=== PATIENT | female | born 1965 | race Caucasian/White ===

== ENCOUNTER 2017-02-06 09:41 | Outpatient (CLI) | payer BC ==
--- NOTE | 2017-02-06 10:56 | ULT ---
GALLBLADDER ULTRASOUND: Clinical history: Pain. FINDINGS: There is no evidence of cholelithiasis or gallbladder wall thickening. The imaged liver reveals no fo eric hepatic lesion. No ascites is seen. The common duct is normal at 4 mm in diameter where visualize d. IMPRESSION: No acute abnormality in the right upper quadrant. POS: [facility]
== END 2017-02-06 09:42 | disposition home or self-care (01) ==
LOC: ULT 09:41
PROVIDERS: ATTEND Internal Medicine Gastroenterology
DX: Z12.11 Encounter for screening for malignant neoplasm of colon (principal); K57.32 Diverticulitis of large intestine without perforation or abscess without bleeding; K91.1 Postgastric surgery syndromes; E88.81 Metabolic syndrome and other insulin resistance; R19.7 Diarrhea, unspecified; Z90.3 Acquired absence of stomach [part of]
CPT/HCPCS: 76705

== ENCOUNTER 2017-10-01 11:01 | Observation (INO) | payer BC ==
[2017-10-01] MEDS ORDERED: Diltiazem 125 MG in Sodium Chloride 0.9% 100 ML IVPB SCH (11:30)
[2017-10-01 12:43] LABS: #Basophils 0.1 thou/uL (0.0-0.2); #Eosinphils 0.2 thou/uL (0.0-0.7); #Lymphocytes 3.1 thou/uL (1.20-3.40); #Monocytes 0.6 thou/uL (0.11-0.59); #Neutrophils 5.7 thou/uL (1.40-6.50); %Basophils 0.8 % (0.0-1.0); %Eosinophils 1.8 % (0.0-10.0); %Lymphocytes 32.1 % (21.0-51.0); %Monocytes 6.2 % (0.0-10.0); %Neutrophils 59.1 % (42.0-75.0); Hemoglobin 13.3 g/dL (12.0-16.0); Mean Corpuscular Hemoglobin 28.4 pg (27.0-31.0); Mean Corpuscular Volume 86.2 fL (78.0-98.0); Mean Platelet Volume 8.1 fL (7.4-10.4); Platelet Count 279 thou/uL (130-400); RBC Distribution Width 12.6 % (11.5-14.5); Red Blood Cell (RBC) Count 4.69 mill/uL (4.20-5.40); White Blood Cell (WBC) Count 9.7 thou/uL (4.8-10.8)
[2017-10-01] MEDS ORDERED: Enoxaparin Sodium 100 MG/ML SYRINGE ONE (12:51)
[2017-10-01 12:58] LABS: ALT (SGPT) 16 U/L (8-55); AST (SGOT) 17 U/L (5-34); Albumin 4.4 g/dL (3.5-5.0); Alkaline Phosphatase 102 U/L (40-150); Anion Gap 14 mmol/L (10-20); BUN (Urea Nitrogen) 23 mg/dL (9.8-20.1); Bilirubin, Total 0.3 mg/dL (0.2-1.2); CK (CPK) 127 U/L (29-168); Calc. Creatinine Clearance 0 mL/min (70-130); Calcium 10.3 mg/dL (7.8-10.44); Carbon Dioxide 25 mmol/L (22-29); Chloride 104 mmol/L (98-107); Estimated GFR-MDRD 76; Globulin 2.9 g/dL (2.4-3.5); Glucose 98 mg/dL (70-105); Potassium 4.1 mmol/L (3.5-5.1); Protein, Total 7.3 g/dL (6.0-8.3); Sodium 139 mmol/L (136-145)
[2017-10-01 13:03] LABS: CKMB 1.7 ng/mL (0-6.6); Troponin I Less than 0.010 ng/mL (< 0.028)
[2017-10-01 14:47] VITALS: BMI 43.2
--- NOTE | 2017-10-01 15:59 | HP ---
DATE OF ADMISSION: 10/01/2017 ADMITTING PHYSICIAN: Sawyer Barrera M.D. HISTORY OF PRESENT ILLNESS: A 52-year-old female with previous history of atrial fibrillation who pr esented to the emergency room complaining of same. She has symptoms of slight shortness of breath, d ifficulty breathing. No chest pain is otherwise noted. She was seen and evaluated in the emergency room, found to be in atrial fibrillation with rapid ventricular response. This was confirmed by EKG. There were no EKG changes. She was placed on Cardizem drip. Heart rate has slowed, but she remain ed in atrial fibrillation. As noted, she has had a history of atrial fibrillation in the past. She is not maintained on medication at this time. Specifically, she has not been taking her medicines as prescribed. As noted, she noted no chest pain, did note some slight difficulty breathing, slight nausea, but no v omiting. At this time upon our interview, she is currently resting well, still on Cardizem drip. Ot herwise, no other medical complaints are noted. She has previously been on novel anticoagulants in t he past. She has stopped taking those at this time. Otherwise, no other medical complaints. ALLERGIES: She is allergic to PENICILLIN, SHELLFISH and SULFA. CURRENT MEDICATIONS: Thyroid and aspirin. She is also on losartan 50 mg p.o. daily as well as dilti azem 240 mg daily. PAST MEDICAL HISTORY: Positive for hypothyroidism, hypertension. PAST SURGICAL HISTORY: Positive for tonsillectomy, shoulder surgeries, . SOCIAL/PERSONAL HISTORY: She does not smoke, drinks alcohol. She works as a nurse. REVIEW OF SYSTEMS: Otherwise, unremarkable. PHYSICAL EXAMINATION: VITAL SIGNS: Her temperature is 98.6, pulse 80 and irregular, BP 110/74. GENERAL: She is alert, active, in no acute distress. HEENT: Normocephalic, atraumatic. Extraocular muscles intact. Sclerae and conjunctivae are clear. Throat clear. NECK: Supple, full range of motion, no masses. LUNGS: Clear. HEART: Reveals an irregularly irregular rhythm without murmur, gallops or rubs. ABDOMEN: Soft, nontender. Bowel sounds present and active. EXTREMITIES: No clubbing, edema or cyanosis. NEUROLOGIC: She is alert and oriented x3. Cranial nerves II-XII are grossly intact. LABORATORY DATA: Her hemoglobin is 13.3, hematocrit 40.5, white count 9.7. Sodium 139, potassium 4. 1, chloride 104, CO2 25, BUN 23, creatinine 0.79. Initial troponin 0.01. EKG reveals no acute lynn es. AFib, initially with rapid ventricular response, now was rate controlled AFib. IMPRESSION: Atrial fibrillation. PLAN: The patient will be placed in observation overnight. Cardiology consult will be obtained. I have gone and placed her on Eliquis. I have briefly discussed with her the possible need for further intervention such as ablation which she has had this in the past is not having recurrence of such. The patient verbalized understanding. We will wait for Cardiology input.
[2017-10-01] MEDS: Apixaban 5 MG TAB PO SCH (20:38)
--- NOTE | 2017-10-02 08:58 | CON ---
DATE OF CONSULTATION: 10/02/2017 REASON FOR CONSULTATION: Atrial fibrillation. REFERRING PROVIDER: Dr. Sawyer Barrera. HISTORY OF PRESENT ILLNESS: Mr. Carey is a very pleasant 52-year-old woman who has a previous histo ry of paroxysmal atrial fibrillation. I last saw Ms. Novak in 08/2016. At that time, she is on Car dizem and I placed her on anticoagulation therapy. I have not seen Ms. Novak for over 1 year. She has subsequently stopped her anticoagulation therapy and calcium channel blockade. She states recently she had an episode of palpitations yesterday. She thinks she went into atrial fi brillation yesterday, but is unsure. She presented to the emergency room with atrial fibrillation wi th RVR. She is on IV Cardizem and is rate controlled. PAST MEDICAL HISTORY: Hyperlipidemia, hypertension, obesity, hypothyroidism C, x3. ALLERGIES: PENICILLIN. HOME MEDICATIONS: Include Protonix, losartan, aspirin, and [place] Thyroid. SOCIAL HISTORY: No current tobacco or alcohol use. REVIEW OF SYSTEMS: Ten-point review of systems is reviewed and as above, otherwise negative. PHYSICAL EXAMINATION: GENERAL: Patient is a pleasant female who is in no acute distress. The patient appears her stated a ge. VITAL SIGNS: Blood pressure 110/70, pulse 80s, respirations 20. NEUROLOGIC: The patient is alert and oriented times 3 with no focal neurologic deficits. HEENT: Sclerae without icterus. Mouth has moist mucous membranes with normal pallor. NECK: No JVD. Carotid upstroke brisk. No bruits bilaterally. LUNGS: Clear to auscultation with unlabored respirations. BACK: No scoliosis or kyphosis. CARDIAC: Irregularly irregular. No S3 or S4 noted. No significant rubs, murmurs, thrills, or gallops noted throughout the precordium. PMI is not displaced. There is no parasternal heave. ABDOMEN: Soft, nontender, nondistended. No peritoneal signs present. No hepatosplenomegaly. No abnormal striae. EXTREMITIES: 2+ femoral and 2+ dorsalis pedis pulses. No cyanosis, clubbing, or edema. SKIN: No gross abnormalities. PERTINENT LABORATORY DATA: Hemoglobin 13.3, sodium 139, BUN 29, creatinine 0.79. IMPRESSION: Paroxysmal atrial fibrillation. RECOMMENDATIONS: 1. Add p.o. Cardizem at 240 q.a.m. That was her previous diltiazem dose, which I subsequently have been discontinued. 2. Add Eliquis at 5 mg p.o. b.i.d. 3. Discontinue Cardizem at noon. Patient's CHADS-VASc score is estimated at 2. She does appear to have paroxysmal atrial fibrillation . Given that she has not been on anticoagulation therapy, do not feel comfortable proceeding with he r cardioversion. At this point, the plan is rate control. When she is rate controlled, then from my standpoint, it would be okay for discharge with close outpatient followup.
[2017-10-02] MEDS ORDERED: Losartan 25 MG TAB PO SCH (09:00)
[2017-10-02] MEDS ORDERED: Thyroid 60 MG TAB PO SCH (09:00)
[2017-10-02] MEDS: Apixaban 5 MG TAB PO SCH (09:33)
[2017-10-02 11:26] VITALS: BP 105/58; TEMP 97.8
--- NOTE | 2017-10-02 13:27 | PRG ---
DATE OF SERVICE: 10/02/2017 SUBJECTIVE: Ms. Novak is doing well. She has converted back to sinus rhythm now. She is toleratin g all oral intake. She is feeling better. No other medical complaints. OBJECTIVE: VITAL SIGNS: Pulse 64 and regular, BP 105/58. IMPRESSION: Atrial fibrillation. PLAN: She will be discharged home today. DISCHARGE NOTE: She will be discharged home today on her home medications which will be losartan 50 mg daily, pantoprazole 40 mg daily, [place] Thyroid 120 mg daily. She will be continued on Eliquis 5 mg daily and 5 Cardizem-CD 240 mg daily. She will be seen in followup with Dr. Monroe in approxim ately 1 week.
== END 2017-10-02 14:43 | disposition home or self-care (01) ==
LOC: ERS 11:01 → 2SW 14:39
PROVIDERS: ADMIT Family Medicine; ATTEND Family Medicine
DX: I48.0 Paroxysmal atrial fibrillation (principal); E03.9 Hypothyroidism, unspecified; I10 Essential (primary) hypertension; E78.5 Hyperlipidemia, unspecified; E66.9 Obesity, unspecified; Z68.41 Body mass index [BMI] 40.0-44.9, adult; Z79.82 Long term (current) use of aspirin; Z79.899 Other long term (current) drug therapy; Z88.0 Allergy status to penicillin; Z88.2 Allergy status to sulfonamides; Z88.8 Allergy status to other drugs, medicaments and biological substances; Z91.013 Allergy to seafood
CPT/HCPCS: 80053; 82553; 84484; 85025; 93005; 96365; 96366; 96372; 96376; G0378; J1650; J3490; J7050

== ENCOUNTER → 2017-11-19 | Day surgery (SDC) | payer BC ==
[2017-11-16 11:16] LABS: Follow-up Chemistry Comp? YES
--- NOTE | 2017-11-19 11:47 | CT ---
CT ANGIO CHEST PERFORMED WITH AND WITHOUT CONTRAST ENHANCEMENT: Date: 11/19/17 HISTORY: Coronary mapping. Patient has atrial fibrillation and is to have an ablation on 11/23/17. FINDINGS: This examination was technically inadequate due to difficulty with venous access. The visualized lung rose are clear of any infiltrative process. No pulmonary nodules are identified . No pleural effusions. No significant mediastinal or hilar adenopathy is appreciated on this examina tion. IMPRESSION: 1. Poor IV access, which limited the angiographic portion of the study; nondiagnostic, the patient d id not want to proceed with another attempt. 2. No signs of pulmonary nodules or infiltrates. Small hiatal hernia is incidentally noted. 3. Suggestion of some possible fatty changes of the liver. POS: [facility]
== END ==
LOC: CT 11-16 09:42
PROVIDERS: ATTEND Internal Medicine Cardiovascular Disease
DX: Z01.818 Encounter for other preprocedural examination (principal); I48.91 Unspecified atrial fibrillation; R06.02 Shortness of breath
CPT/HCPCS: 36415; 71275; 82565; 84520

== ENCOUNTER 2017-11-23 05:56 | Inpatient (IN) | payer BC ==
[2017-11-23] MEDS ORDERED: Heparin 10,000 UNITS/1 ML VIAL ONE ×3 (06:35→08:14)
[2017-11-23 06:47] LABS: #Basophils 0.1 thou/uL (0.0-0.2); #Eosinphils 0.2 thou/uL (0.0-0.7); #Lymphocytes 2.5 thou/uL (1.20-3.40); #Monocytes 0.5 thou/uL (0.11-0.59); #Neutrophils 4.6 thou/uL (1.40-6.50); %Basophils 0.9 % (0.0-1.0); %Eosinophils 2.6 % (0.0-10.0); %Lymphocytes 32.4 % (21.0-51.0); %Monocytes 5.8 % (0.0-10.0); %Neutrophils 58.3 % (42.0-75.0); Hemoglobin 12.2 g/dL (12.0-16.0); Mean Corpuscular HGB CONC 31.8 g/dL (32.0-36.0); Mean Corpuscular Hemoglobin 27.3 pg (27.0-31.0); Mean Corpuscular Volume 85.8 fL (78.0-98.0); Mean Platelet Volume 7.6 fL (7.4-10.4); Platelet Count 258 thou/uL (130-400); RBC Distribution Width 12.6 % (11.5-14.5); Red Blood Cell (RBC) Count 4.47 mill/uL (4.20-5.40); White Blood Cell (WBC) Count 7.9 thou/uL (4.8-10.8)
[2017-11-23 06:54] LABS: Prothrombin Time 13.7 SEC (12.0-14.7)
[2017-11-23 06:59] LABS: Anion Gap 13 mmol/L (10-20); BUN (Urea Nitrogen) 19 mg/dL (9.8-20.1); Calc. Creatinine Clearance 137 mL/min (70-130); Calcium 8.9 mg/dL (7.8-10.44); Carbon Dioxide 25 mmol/L (22-29); Chloride 106 mmol/L (98-107); Estimated GFR-MDRD 76; Glucose 101 mg/dL (70-105); PTT 27.1 SEC (22.9-36.1); Potassium 4.2 mmol/L (3.5-5.1); Sodium 140 mmol/L (136-145)
[2017-11-23] MEDS ORDERED: Phenylephrine HCL 10 MG/ML VIAL ONE ×2 (07:05→11:11)
[2017-11-23] MEDS ORDERED: Promethazine HCl 25 MG/ML VIAL ONE (07:31)
[2017-11-23] MEDS ORDERED: Lidocaine 2% Jelly 5 ML TUBE ONE (07:31)
[2017-11-23] MEDS ORDERED: Protamine Sulfate 50 MG/5 ML VIAL ONE ×2 (07:31→09:48)
[2017-11-23] MEDS ORDERED: Fentanyl 100 MCG/2 ML VIAL ONE ×2 (07:31→13:53)
[2017-11-23] MEDS ORDERED: Furosemide 40 MG/4 ML VIAL ONE (07:31)
[2017-11-23] MEDS ORDERED: Heparin 25,000 units/D5W 500 ML ONE (07:32)
[2017-11-23] MEDS ORDERED: Isoproterenol 0.2 MG/1 ML AMP ONE (09:47)
[2017-11-23] MEDS ORDERED: PHENYLEPHRINE-NS 100 MCG/ML 10 ML SYRINGE ONE ×2 (11:12→12:34)
[2017-11-23] MEDS ORDERED: Ondansetron HCl/PF 4 MG/2 ML Vial ONE (12:34)
[2017-11-23] MEDS ORDERED: Protamine Sulfate 250 MG/25 ML VIAL ONE (12:34)
[2017-11-23] MEDS ORDERED: Dexamethasone 20 MG/5 ML VIAL ONE (12:34)
[2017-11-23] MEDS ORDERED: PROPOFOL 200 MG/20 ML VIAL ONE (12:34)
[2017-11-23] MEDS ORDERED: Heparin 30,000 units/30 ml VIAL ONE (12:34)
--- NOTE | 2017-11-23 14:52 | OP ---
DATE OF PROCEDURE: 11/23/2017 PROCEDURE: Pulmonary venous isolation REFERRING PHYSICIAN: Dr. Nicholas Monroe REASON FOR PROCEDURE: Ms. Novka is a 52-year-old woman with history of elevated BMI and frequent atrial fibrillation paroxysms. She has no obstruction , normal heart. She is here for pulmonary venous isolation procedure. PROCEDURE: The patient received propofol and general anesthesia by Anesthesia specialist. After adequate level of sedation achieved, the left and right femoral veins were prepped and draped and anesthetized using subcutaneous lidocaine and under ultrasound guidance, both left and right veins were cannulated x2. On the left side an 11 Slovak sheath was used to advance an ice catheter which was used to monitor the transseptal puncture as well as monitoring pericardial effusion throughout the procedure. Also from the left side there was a sheath inserted which was used to place a duodeca catheter in the CS to access the right atrium location. From the right initially an 8 Slovak short sheaths were introduced which was used to advance a ThermoCool SF ST ablation catheter to the right atrium and 3D map of the right atrium was obtained. Following that, the 8 [place] sheaths were exchanged to a 2 SL1 sheaths were used to perform transseptal puncture under fluoroscopic and ice catheter guidance with a transseptal puncture was performed and 2 SL1 sheaths were introduced. Heparin was introduced at this point and boluses and heparin drip was adjusted throughout the case to over 350 ACT levels. Through the transseptal sheath, the ThermoCool SF ST and the 24 Lasso catheter was introduced to the left atrium and left atrial 3D map was obtained. The ThermoCool catheter was used to perform pulmonary venous isolation procedure. During the catheter manipulation atrial fibrillation spontaneously induced and persisted even after pulmonary venous isolation was completed. A posterior wall isolation was also completed with a superior and inferior line. Through the ablation procedure, the esophogeal probe was monitored for temperature rises and following that an infra-wall ablation was also performed. The patient remained in atrial fibrillation despite. At this point cardioversion was performed, 200 joules and subsequently the patient maintained sinus rhythm. Isuprel was administered and the reconnected veins were re-isolated. Ventricular pacing demonstrated no evidence of accessory pathway with VA Wenckebach cycle length was at 40 milliseconds. AV Wenckebach segment on the isuprel was 330 milliseconds. The AV node ERP on the right upper was 400/180 with no evidence of dual AV node physiology is seen. HV measurements was 46 milliseconds. Following this, the sheaths were pulled back to the right side, catheters were removed. The lack of pericardial effusion was ascertained by fluro and ICE catheter and none was found. Heparin was discontinued and protamine was administered to reverse heparin effect. The sheaths were pulled in the dental laboratory technician apprentice. The patient tolerated the procedure, no complication noted. CONCLUSION: Succesful Pulmonary vein and posterior wall isolation procedure. PLAN: Routine postoperative care. Resume anticoagulation. MTDD
[2017-11-23] MEDS ORDERED: Acetaminophen/Codeine 30-300mg Tablet PO PRN (15:45)
[2017-11-23] MEDS: Sucralfate 1 GM TAB PO SCH (18:51)
[2017-11-23] MEDS: metFORMIN 500 MG TAB PO SCH (18:51)
[2017-11-23] MEDS: Acetaminophen/Codeine 30-300mg Tablet PO PRN (19:41)
[2017-11-23] MEDS: Apixaban 5 MG TAB PO SCH (19:42)
[2017-11-23] MEDS ORDERED: Diabetic Tussin 200 MG/10 ML UDCUP PO PRN (20:59)
[2017-11-24] MEDS: Sucralfate 1 GM TAB PO SCH ×4 (00:14→16:26)
[2017-11-24] MEDS: Acetaminophen/Codeine 30-300mg Tablet PO PRN ×3 (01:35→10:52)
[2017-11-24] MEDS: Ketorolac Tromethamine 30 MG/ML VIAL IVP PRN ×2 (10:01→21:17)
[2017-11-24] MEDS: metFORMIN 500 MG TAB PO SCH ×2 (10:50→16:25)
[2017-11-24] MEDS: Apixaban 5 MG TAB PO SCH ×2 (10:51→21:16)
[2017-11-24] MEDS: Calcium Carbonate 500 MG TAB PO SCH ×2 (10:51→11:03)
[2017-11-24] MEDS: Multivit, Therapeutic 1 TAB PO SCH ×2 (10:51→11:03)
[2017-11-24] MEDS ORDERED: ISOVUE-370 76%-LOCM 1 ML ONE (10:52)
[2017-11-24] MEDS: Thyroid 60 MG TAB PO SCH (12:25)
[2017-11-24] MEDS ORDERED: Furosemide 20 MG/2 ML VIAL SLOW IVP SCH (13:30)
[2017-11-24] MEDS ORDERED: Atropine Sulfate 1 mg/10 ml Syringe ONE (15:08)
[2017-11-24 15:15] LABS: #Eosinphils 0.2 thou/uL (0.0-0.7); #Lymphocytes 2.1 thou/uL (1.20-3.40); #Neutrophils 6.4 thou/uL (1.40-6.50); %Basophils 0.3 % (0.0-1.0); %Eosinophils 1.8 % (0.0-10.0); %Lymphocytes 21.5 % (21.0-51.0); %Monocytes 9.9 % (0.0-10.0); %Neutrophils 66.4 % (42.0-75.0); Mean Corpuscular HGB CONC 32.1 g/dL (32.0-36.0); Mean Corpuscular Hemoglobin 27.7 pg (27.0-31.0); Mean Corpuscular Volume 86.3 fL (78.0-98.0); Mean Platelet Volume 8.1 fL (7.4-10.4); Platelet Count 147 thou/uL (130-400); RBC Distribution Width 12.8 % (11.5-14.5); Red Blood Cell (RBC) Count 3.98 mill/uL (4.20-5.40); White Blood Cell (WBC) Count 9.6 thou/uL (4.8-10.8)
[2017-11-24] MEDS ORDERED: Norepinephrine 8 MG/0.9% NS 250 ML ONE (15:16)
[2017-11-24] MEDS ORDERED: DOPamine 400 MG/D5W 250 ML 250 ML ONE (15:51)
[2017-11-24] MEDS ORDERED: diphenhydrAMINE 50 MG/ML VIAL IVP SCH (16:00)
[2017-11-24] MEDS ORDERED: DOPamine 400 MG/D5W 250 ML 250 ML IVPB SCH (16:00)
[2017-11-24] MEDS: Ondansetron HCl/PF 4 MG/2 ML Vial SLOW IVP SCH ×2 (16:11→16:40)
--- NOTE | 2017-11-24 16:19 | PDOC.PULCN ---
<Stephon Perez - Last Filed: 11/24/17 16:40> Pulmonology Consult: HPI - Date of Consult Date: 11/24/17 Time: 16:15 - Consult Details Reason for Consult: ICU admission & Hypotension Requesting Physician: Dr. Cottrell - History of Present Illness HPI: GREGORY WYLIE is a 52 year-old Female that presents s/p successful ablation for paroxysmal A-fib. Patient had CODE ERIKA called during a transthoracic echocardiogram. Patient was found to be hypotensive, diaphoretic, pale, and complaining of pain. Patient describes the pain in her chest as "tearing and through to her back." Patient's daughter who is a nurse stated that her BP got down to as low as 60s systolic. Patient then has maintained to 90s systolic after her first liter of fluid. Patient also states the pain is worse with lying down. Patient also complains of SOB. Patient had successful ablation completed yesterday without complication. Patient states that she feels weak and lightheaded. Patient denies any fevers, chills, recent illness, or cough. No other complaints at this time. Pulmonology Consult: ROS - Review of Systems Constitutional: negative: fever, chills Cardiovascular: chest pain, light headedness. negative: palpitations Respiratory: short of breath. negative: congestion, cough Pulmonology Consult: PMH Source: patient, family Past Medical History: PMH: HTN, HLD, A-fib, Pre-DM PSH: Gastric sleeve, x3 - Family History Family history: reviewed and not pertinent - Social History Smoking Status: Never smoker Alcohol Use: none Drug Use History: none Living Situation: independent Pulmonology Consult: Meds - Medications Medications: Current Medications Acetaminophen/Codeine Phosphate (Tylenol #3) 1 tab PO Q4H PRN PRN Reason: Mild Pain (1-3) Acetaminophen/Codeine Phosphate (Tylenol #3) 2 tab PO Q4H PRN PRN Reason: Moderate Pain (4-6) Last Admin: 11/24/17 10:52 Dose: 2 tab Apixaban (Eliquis) 5 mg PO BID [facility] Last Admin: 11/24/17 10:51 Dose: 5 mg Calcium Carbonate (Oscal-500) 500 mg PO DAILY [facility] Last Admin: 11/24/17 11:03 Dose: Not Given Cholecalciferol (Vitamin D3) 1,000 units PO QAM [facility] Last Admin: 11/24/17 10:51 Dose: 1,000 units Colchicine (Colcrys) 0.6 mg PO BID [facility] Diltiazem HCl (Cardizem Cd) 240 mg PO QAM [facility] Last Admin: 11/24/17 10:50 Dose: 240 mg Diphenhydramine HCl (Benadryl) 50 mg IVP [facility] Stop: 11/24/17 17:00 Last Admin: 11/24/17 16:12 Dose: 50 mg Guaifenesin (Robitussin Sf) 400 mg PO Q4H PRN PRN Reason: ALLERGIES Dopamine HCl/Dextrose (Dopamine/D5w) 250 mls @ 21.368 mls/hr IVPB INF [facility]; Protocol Ketorolac Tromethamine (Toradol) 30 mg IVP Q6H PRN PRN Reason: PAIN 4-6 Stop: 11/29/17 09:58 Last Admin: 11/24/17 10:01 Dose: 30 mg Metformin HCl (Glucophage) 500 mg PO BID-[facility] Last Admin: 11/24/17 10:50 Dose: 500 mg Methylprednisolone Sodium Succinate (Solu-Medrol) 40 mg IVP 1600 [facility] Stop: 11/24/17 18:00 Multivitamins (Theragran) 1 tab PO [facility] Last Admin: 11/24/17 11:03 Dose: Not Given Ondansetron HCl (Zofran) 4 mg SLOW IVP NOW [facility] Stop: 11/24/17 16:45 Last Admin: 11/24/17 16:11 Dose: Not Given Pantoprazole Sodium (Protonix) 40 mg PO DAILY [facility] Last Admin: 11/24/17 10:54 Dose: 40 mg Sodium Chloride (Flush - Normal Saline) 10 ml IVF PRN PRN PRN Reason: Saline Flush Last Admin: 11/24/17 10:05 Dose: 10 ml Sucralfate (Carafate) 1 gm PO Q6HR [facility] Last Admin: 11/24/17 12:24 Dose: 1 gm Thyroid ([place] Thyroid) 120 mg PO QAM [facility] Last Admin: 11/24/17 12:25 Dose: 120 mg - Allergies Allergies/Adverse Reactions: Allergies Allergy/AdvReac Type Severity Reaction Status Date / Time Penicillins Allergy Severe Rash Verified 10/01/18 17:56 Sulfa (Sulfonamide Allergy Severe Hives Verified 11/23/17 17:56 Antibiotics) crab Allergy Verified 11/23/17 17:56 sulfamethoxazole Allergy Verified 11/23/17 17:56 [From Bactrim] trimethoprim [From Bactrim] Allergy Verified 11/23/17 17:56 CRAWFISH Allergy Uncoded 11/20/17 10:53 Pulmonology Consult: PE - Physical Exam Constitutional: NAD Deviation from normal: Obese Deviation from normal: Dry mucous membranes Neck: no nodes Cardiovascular: RRR, no significant murmur Respiratory: clear to auscultation bilaterally Gastrointestinal: soft, non-tender, no distention, positive bowel sounds Musculoskeletal: no edema, pulses present Deviation from normal: Catheter insertion sites clean, dry and intact Neurological: non-focal, normal sensation, moves all 4 limbs Psychiatric: normal affect, A&O x 3 Skin: no rash Pulmonology Consult: Results - Labs Result Diagrams: 11/24/17 15:03 11/23/17 06:36 - EKG Data EKG shows normal: sinus rhythm Rate: normal Pulmonology Consult: A/P - Problem (1) Paroxysmal atrial fibrillation Current Visit: Yes Code(s): I48.0 - PAROXYSMAL ATRIAL FIBRILLATION Status: Acute (2) Hypotension Current Visit: Yes Status: Acute (3) Chest pain of uncertain etiology Current Visit: Yes Code(s): R07.89 - OTHER CHEST PAIN Status: Acute (4) Hypertension Current Visit: Yes Code(s): I10 - ESSENTIAL (PRIMARY) HYPERTENSION Status: Acute (5) HLD (hyperlipidemia) Current Visit: Yes Code(s): E78.5 - HYPERLIPIDEMIA, UNSPECIFIED Status: Acute (6) Prediabetes Current Visit: Yes Code(s): R73.03 - PREDIABETES Status: Acute - Time Time: 50% of the time was spent in coordination of care (as documented) at patient's floor/unit and/or counseling patient. Time with Patient: greater than 50 minutes - Plan Plan: 1. Paroxysmal A-fib - s/p ablation - Currently NSR - Dr. Cottrell is primary, will defer to recommendations 2. Hypotension - Differential includes Volume depletion, Pericarditis, Aortic dissection, Retroperitoneal bleed, Medication induced, Infection - medication review doesn't show any likely cause - Volume depletion patient has increased BP with 2L NS - Pericarditis: No diffuse ST elevation on EKG - Aortic dissection: CTA chest ordered - Retroperitoneal bleed: CT abdomen ordered - Infection: No WBC elevation, no fevers, no other systemic signs of infection 3. Chest pain - Suspected pericarditis vs other etiologies - studies as above - Colchicine, Toradol - will order troponins # Pre-DM - Continue metformin - Consistent carb diet - Consider accuchecks # HTN - Hold home BP meds until hypotension resolved # HLD - Doesn't take any medication as doesn't tolerate - Recommend outpatient follow up Disposition: Guarded, will admit to CCU and await study results. <Ras Staton - Last Filed: 11/26/17 08:38> Pulmonology Consult: HPI - History of Present Illness HPI: LILIANAKAYLakhwinderGREGORY DE LEÓN is a 52 year-old F Pulmonology Consult: Meds - Medications Medications: Current Medications Acetaminophen/Codeine Phosphate (Tylenol #3) 1 tab PO Q4H PRN PRN Reason: Mild Pain (1-3) Acetaminophen/Codeine Phosphate (Tylenol #3) 2 tab PO Q4H PRN PRN Reason: Moderate Pain (4-6) Last Admin: 11/24/17 10:52 Dose: 2 tab Apixaban (Eliquis) 5 mg PO BID [facility] Last Admin: 11/25/17 20:44 Dose: 5 mg Calcium Carbonate (Oscal-500) 500 mg PO DAILY [facility] Last Admin: 11/25/17 09:25 Dose: Not Given Cholecalciferol (Vitamin D3) 1,000 units PO [facility] Last Admin: 11/25/17 09:26 Dose: Not Given Colchicine (Colcrys) 0.6 mg PO BID [facility] Last Admin: 11/25/17 20:44 Dose: 0.6 mg Diltiazem HCl ([facility]em Cd) [facility] Last Admin: 11/25/17 09:26 Dose: 240 mg Guaifenesin (Robitussin Sf) 400 mg PO Q4H PRN PRN Reason: ALLERGIES Dopamine HCl/Dextrose (Dopamine/D5w) 250 mls @ 21.368 mls/hr IVPB INF [facility]; Protocol Ketorolac Tromethamine (Toradol) 30 mg IVP Q6H PRN PRN Reason: PAIN 4-6 Stop: 11/29/17 09:58 Last Admin: 11/26/17 00:37 Dose: 30 mg Metformin HCl (Glucophage) 500 mg PO BID-[facility] Last Admin: 11/25/17 17:10 Dose: Not Given Multivitamins (Theragran) [facility] Last Admin: 11/25/17 09:26 Dose: Not Given Ondansetron HCl (Zofran) 4 mg SLOW IVP Q6H PRN PRN Reason: Nausea/Vomiting Pantoprazole Sodium (Protonix) 40 mg PO DAILY [facility] Last Admin: 11/25/17 09:27 Dose: 40 mg Promethazine HCl (Phenergan) 12.5 mg IM Q6H PRN PRN Reason: Nausea/Vomiting Sodium Chloride (Flush - Normal Saline) 10 ml IVF PRN PRN PRN Reason: Saline Flush Last Admin: 11/24/17 10:05 Dose: 10 ml Sucralfate (Carafate) 1 gm PO Q6HR [facility] Last Admin: 11/26/17 05:31 Dose: 1 gm Thyroid ([place] Thyroid) 120 mg PO [facility] Last Admin: 11/25/17 09:27 Dose: 120 mg Pulmonology Consult: Results - Labs Result Diagrams: 11/26/17 04:50 11/26/17 04:50 Pulmonology Consult: A/P - Time Time: 50% of the time was spent in coordination of care (as documented) at patient's floor/unit and/or counseling patient. Attending Addendum - Attending Addendum Date/Time: 11/24/17 1800 I personally evaluated the patient and discussed the management with Dr. Perez. I agree with the History, Examination, Assessment and Plan documented above with any addition or exceptions noted below. Atrial fibrillation s/p ablation. Pericarditis, suspected 2/2 Ablation If diagnostic studies are negative, start NSAID. 70 minutes have been devoted to this patient in various activities. I personally reviewed all imaging studies and laboratory data noted within this document. For fifty percent of this time, I was interacting with the patient at the bedside or coordinating care with the care team. For the remainder of the time I was immediately available to the patient in the hospital unit.
[2017-11-24 16:45] LABS: ALT (SGPT) 16 U/L (8-55); AST (SGOT) 39 U/L (5-34); Albumin 3.5 g/dL (3.5-5.0); Alkaline Phosphatase 70 U/L (40-150); Anion Gap 9 mmol/L (10-20); BUN (Urea Nitrogen) 11 mg/dL (9.8-20.1); Bilirubin, Total 0.5 mg/dL (0.2-1.2); Calc. Creatinine Clearance 158 mL/min (70-130); Calcium 7.9 mg/dL (7.8-10.44); Carbon Dioxide 24 mmol/L (22-29); Chloride 108 mmol/L (98-107); Estimated GFR-MDRD 81; Globulin 2.2 g/dL (2.4-3.5); Glucose 141 mg/dL (70-105); Protein, Total 5.7 g/dL (6.0-8.3); Sodium 137 mmol/L (136-145)
[2017-11-24 17:17] LABS: CKMB 6.9 ng/mL (0-6.6); Troponin I 5.421 ng/mL (< 0.028)
[2017-11-24 17:33] VITALS: BMI 44.4
--- NOTE | 2017-11-24 17:54 | PRG ---
DATE OF SERVICE: 11/24/2017 ELECTROPHYSIOLOGY FOLLOWUP NOTE REFERRING PHYSICIAN: Nicholas Monroe MD SUBJECTIVE: Ms. Novak has had stable vital signs overnight. She did develop though pleuritic chest discomforts overnight, which were severe. She has a hard time taking a deep breath because of that. She received Toradol, which seems to have improved her pain, but did not completely eliminate it. She felt mildly short of breath. Oxygen saturations were transiently dropped down to 93 on room air, but mostly it stayed between 92%-98%. She developed sudden nausea this afternoon, at which time, her blood pressure and heart rate dropped simultaneously. Heart rate lowered to 52 and blood pressure to 73/46. She received IV bolus fluid and also atropine. This brought up her blood pressure in the 90-100 range. She was transferred to the ICU for further management. Currently, still has some mild pleuritic chest pains and minimal nausea only. OBJECTIVE DATA: VITAL SIGNS: The blood pressure at 10 o'clock was 117/73, heart rate 83, respirations 20, temperature 98.5 degrees Fahrenheit at 1433 hours. Blood pressure dropped down to 73/46 with heart rate 52 and quickly came up to 101/59 after a bolus of fluid, but still remains borderline in the 90s later. GENERAL: This is an alert, oriented, obese woman with moderate distress with her pleuritic discomfort. CHEST: Coarse without crackles. CARDIOVASCULAR: Heart sounds are regular to rate and rhythm. I do not hear murmur, gallop, or rub. ABDOMEN: Benign. Bowel sounds are positive. EXTREMITIES: Lower extremities without edema, clubbing, or cyanosis. Pulses are adequate. NEUROLOGIC: The patient is nonfocal. MUSCULOSKELETAL: No joint swelling or deformity. SKIN: Without rash. DATABASE: The EKGs were reviewed revealing sinus rhythm, rate of 82 beats per minute at 7:00 a.m. and rate of 61 beats per minute at [address] elevation is seen. Minor ND depression is also seen. LABORATORY DATA: The white count is 9.6, hemoglobin 11, platelet count is 147. Sodium 140, potassium 4.2, BUN is 90, creatinine 0.79 yesterday morning. The 2D echo I reviewed at the time it was done at the bedside seems to reveal normal LV systolic function. No signs of significant pulmonary hypertension. The TR gradient is 22. No severe dilation of the inferior vena cava is noted. Right-sided chamber is normal in size. No significant MR or TR noted. No wall motion abnormalities are detected. There is no pericardial effusion seen. ASSESSMENT AND PLAN: Ms. Novak is a 52-year-old woman with paroxysmal highly symptomatic atrial fibrillation, who underwent pulmonary venous isolation procedure yesterday. She did develop sudden hypotension and bradycardia simultaneously in the setting of pleuritic chest pain. Hence, she was transferred to ICU after fluid and atropine bolus. My plan would be at this point: 1. rule out retroperitoneal bleed and also PE, although that would be less likely in the view of continued anticoagulation. Contrast CT is planned. Hence she has shellfish intoerance, possibly iodine allergy, we will give her Solu-Medrol and Benadryl as well. I will place her on dopamine to support her blood pressure to avoid further sudden drops. Otherwise, we will continue the current regimen unless true bleed is detected. 2. Nausea. Posssible impaired gastric emptying. For now, continue n.p.o. status and Zofran as needed. 3. Likely pericarditis related to the ablation procedure. We will start colchicine. Also, we will continue Toradol as necessary. 4. History of atrial fibrillation, so far no recurrence post-ablation. MTDD
[2017-11-24] MEDS ORDERED: Promethazine HCl 25 MG/ML VIAL IM PRN (18:23)
[2017-11-24] MEDS ORDERED: Ondansetron HCl/PF 4 MG/2 ML Vial SLOW IVP PRN (18:24)
[2017-11-24] MEDS: Sodium Chloride 0.9% 1,000 ML IV SCH (18:40)
--- NOTE | 2017-11-24 18:43 | CT ---
CT PULMONARY ANGIOGRAM WITH IV CONTRAST AND 3D POSTPROCESSING: Date: 11/24/17 HISTORY: Patient had heart ablation done yesterday, concern for PE. FINDINGS: The pulmonary arterial vasculature is well opacified without filling defects to suggest pulmonary emb olism. The thoracic aorta shows no evidence of aneurysm or dissection. A small hiatal hernia is prese nt. No pericardial effusion is seen. There are bibasilar infiltrates/atelectatic changes with a tiny right pleural effusion. Degenerative changes are present in the spine. IMPRESSION: No CT evidence of pulmonary embolism. Report called over the phone to Dr. Cottrell at 1709 hours. CODE CR. POS: [facility]
--- NOTE | 2017-11-24 19:06 | CT ---
CT ABDOMEN WITH CONTRAST CT PELVIS WITH CONTRAST: DATE: 11/24/17 at 4:52 p.m. HISTORY: 52-year-old female with chest and abdominal pain after cardiac ablation procedure. Rule out retroperi toneal hemorrhage. As instructed, Dr. Briscoe verbally gave this report by telephone to Dr. Cottrell at 5:12 p.m. on 11/24/17. COMPARISON: Aortic dissection CTA of 07/22/16. TECHNIQUE: IV injection of iodinated contrast media: 100 mL Isovue 370. Oral contrast media: Not administered. FINDINGS: Again noted are the changes of vertical sleeve gastrectomy. New findings of tiny bilateral pleural ef fusions and adjacent air space densities in the bilateral lower lobes, right greater than left, presu mably atelectasis, although pneumonia is not completely excluded. A new finding of distention of the gallbladder. Mild periportal edema following the branches of the portal vein in the liver. No other h epatic abnormality. Bilateral kidneys, abdominal aorta, adrenals, pancreas, spleen, and appendix are normal. Gurrola catheter in the urinary bladder, but the bladder is not empty. Urinary bladder has norm al, thin hackett. No free fluid or free air identified in the abdominal cavity or pelvic cavity. No ret roperitoneal hematoma. Sigmoid colonic diverticulosis without diverticulitis. No pneumoperitoneum or ascites. IMPRESSION: 1. No intra-abdominal free fluid or hematoma. 2. Tiny bilateral pleural effusions and nonspecific bibasilar pulmonary air space densities, fav ored to be atelectasis. 3. Status post vertical sleeve gastrectomy; and small sliding hiatal hernia. 4. Distended gallbladder. RYAN Warren POS: [facility]
[2017-11-24] MEDS: Colchicine 0.6 MG TAB PO SCH (21:16)
[2017-11-24 22:13] LABS: Hemoglobin 10.9 g/dL (12.0-16.0); Platelet Count 194 thou/uL (130-400)
[2017-11-25] MEDS: Sucralfate 1 GM TAB PO SCH ×4 (00:02→17:10)
[2017-11-25] MEDS: Sodium Chloride 0.9% 1,000 ML IV SCH ×2 (04:35→15:27)
[2017-11-25 05:34] LABS: Hemoglobin 10.2 g/dL (12.0-16.0); Platelet Count 193 thou/uL (130-400)
[2017-11-25] MEDS: Calcium Carbonate 500 MG TAB PO SCH (09:25)
[2017-11-25] MEDS: Apixaban 5 MG TAB PO SCH ×2 (09:25→20:44)
[2017-11-25] MEDS: Colchicine 0.6 MG TAB PO SCH ×2 (09:26→20:44)
[2017-11-25] MEDS: Multivit, Therapeutic 1 TAB PO SCH (09:26)
[2017-11-25] MEDS: Thyroid 60 MG TAB PO SCH (09:27)
[2017-11-25] MEDS: metFORMIN 500 MG TAB PO SCH ×2 (09:32→17:10)
--- NOTE | 2017-11-25 13:19 | PRG ---
DATE OF SERVICE: 11/25/2017 SERVICE: Pulmonary Medicine INTERVAL HISTORY: The patient is doing great from a respiratory standpoint. She does not have any fevers or chills. Chest pain is down to 3/10. It is much more manageable and she was able to get some rest last night. Nurse reports no overnight events. PHYSICAL EXAMINATION: VITAL SIGNS: Afebrile, pulse 95, blood pressure 111/61, respirations 23, saturation 96% on room air. GENERAL: The patient is awake, alert, in no apparent distress. LUNGS: Excellent air entry. There is no prolonged expiratory phase, wheezing, rhonchi, or crackles present. HEART: Normal rate, regular. ABDOMEN: Soft, nontender, nondistended. Bowel sounds are positive. MUSCULOSKELETAL: No cyanosis or clubbing. There is trace pitting in the bilateral lower extremities. NEUROLOGIC: Grossly nonfocal. LABORATORY DATA: Hemoglobin 10.2. Creatinine 0.72. IMAGIN. Echocardiogram demonstrates normal ejection fraction. There is no significant pericardial effusion, or tamponade physiology. There is some valvular abnormalities noted. 2. CT of the chest demonstrates no evidence of PE or dissection. 3. CT of the abdomen and pelvis demonstrates no acute abdominal issue. There is no significant collection of blood in the legs. ASSESSMENT: 1. Pericarditis following ablation procedure. 2. Paroxysmal atrial fibrillation, status post ablation, postoperative day #1. DISCUSSION AND PLAN: At this point, the patient is on colchicine, her pain is abating. There is no evidence of any surgical emergency issue. Her blood pressures have firmed up very nicely. As such, she can be transitioned back to telemetry unit. The patient has been tested for sleep apnea in the outpatient setting and did not have sleep apnea. When she arrived on the floor, she will have no further requirements for inpatient Pulmonary or Critical Care opinion, and I will sign off. PHYLLIS
[2017-11-25] MEDS ORDERED: Potassium Chloride 20 MEQ TAB PO SCH (15:45)
[2017-11-25] MEDS ORDERED: Furosemide 40 MG TAB PO SCH (15:45)
[2017-11-25] MEDS: Ketorolac Tromethamine 30 MG/ML VIAL IVP PRN (17:13)
--- NOTE | 2017-11-25 18:45 | PRG ---
DATE OF SERVICE: 11/25/2017 ELECTROPHYSIOLOGIC NOTE REFERRING PHYSICIAN: Dr. Monroe SUBJECTIVE: Mrs. Novak is doing much better overnight. She had no more nausea. The chest pains ar e improving. She has received some Toradol last night, but none since then. She was kept n.p.o., he nce nausea, vomiting the day before, but there is no recurrence of that. She was receiving some flui ds overnight. This morning states still somewhat dyspneic on ambulation only. No PND, orthopnea, no stroke-like symptoms. No bleeding issues in the groin. She is tolerating her Eliquis medication we ll. Rest of the review of systems is unremarkable. OBJECTIVE: VITAL SIGNS: Blood pressure is 120/60, heart rate 70, respiration is 14, temperature 99 degrees Fahr enheit. GENERAL: Alert and oriented woman in no apparent distress. NECK: Supple. Jugular veins slightly distended. CHEST: Coarse without crackles. CARDIOVASCULAR: Heart sounds are regular to rate and rhythm. No murmur or gallop. ABDOMEN: Benign. Bowel sounds positive. EXTREMITIES: Lower extremities no edema, clubbing or cyanosis. DATABASE: Telemetry strips reveal sinus rhythm. LABORATORY DATA: Hemoglobin today is 10.2. Troponin I yesterday is up to 5.4. This is a post-ablat ion value. The EKGs reveals slight elevation of ST segments, but no ST depression suggestive of mild pericarditi s. ASSESSMENT AND PLAN: Kishore Dunbar is a 52-year-old woman with history of paroxysmal atrial fibrillatio n, also prior gastric sleeve surgery. She underwent an ablation procedure day before yesterday and s ubsequently developed pleuritic chest pains, but also significant nausea and vomiting with resuming h er diet. She had vagal spells pretty significant hypertension and bradycardia requiring atropine and IV fluid administration, presently dopamine was also used. 2D echo, CT abdomen and chest revealing no bleeding, pericardial effusion or pulmonary embolism. Eventually she stabilized overnight with robbi mejia her n.p.o. suspecting some gastric emptying problems. At this point, she is doing much better than yesterday. We will stop the fluid replacement in fact m ight require p.o. Lasix for mobilizing her excess fluid, which received overnight. The Gurrola will be removed and bladder scans will be requested. We will check BMP and CBC tomorrow as well. Regarding pericarditis, continue colchicine and p.r.n Toradol. Paroxysmal atrial fibrillation without recurrence. Continue Eliquis hence recent ablation. History of gastric sleeve surgery, monitor advancement of diet. Consider GI follow up if necessary. Protonix and Carafate for prevention of ulcer.
[2017-11-26] MEDS: Sucralfate 1 GM TAB PO SCH ×3 (00:34→11:49)
[2017-11-26] MEDS: Ketorolac Tromethamine 30 MG/ML VIAL IVP PRN (00:37)
[2017-11-26 05:34] LABS: #Eosinphils 0.2 thou/uL (0.0-0.7); #Lymphocytes 1.6 thou/uL (1.20-3.40); #Monocytes 0.9 thou/uL (0.11-0.59); #Neutrophils 8.2 thou/uL (1.40-6.50); %Basophils 0.3 % (0.0-1.0); %Monocytes 7.8 % (0.0-10.0); %Neutrophils 74.9 % (42.0-75.0); Hemoglobin 9.6 g/dL (12.0-16.0); Mean Corpuscular HGB CONC 32.4 g/dL (32.0-36.0); Mean Corpuscular Hemoglobin 27.8 pg (27.0-31.0); Mean Corpuscular Volume 85.7 fL (78.0-98.0); Mean Platelet Volume 8.1 fL (7.4-10.4); Platelet Count 200 thou/uL (130-400); RBC Distribution Width 12.5 % (11.5-14.5); Red Blood Cell (RBC) Count 3.46 mill/uL (4.20-5.40); White Blood Cell (WBC) Count 10.9 thou/uL (4.8-10.8)
[2017-11-26 05:42] LABS: Anion Gap 11 mmol/L (10-20); BUN (Urea Nitrogen) 14 mg/dL (9.8-20.1); Calc. Creatinine Clearance 158 mL/min (70-130); Calcium 8.4 mg/dL (7.8-10.44); Carbon Dioxide 24 mmol/L (22-29); Chloride 107 mmol/L (98-107); Estimated GFR-MDRD 81; Glucose 104 mg/dL (70-105); Potassium 3.8 mmol/L (3.5-5.1); Sodium 138 mmol/L (136-145)
[2017-11-26] MEDS: metFORMIN 500 MG TAB PO SCH (08:58)
[2017-11-26] MEDS: Calcium Carbonate 500 MG TAB PO SCH (08:59)
[2017-11-26] MEDS: Apixaban 5 MG TAB PO SCH (08:59)
[2017-11-26] MEDS: Multivit, Therapeutic 1 TAB PO SCH (09:00)
[2017-11-26] MEDS ORDERED: Potassium Chloride 20 MEQ TAB PO SCH (09:00)
[2017-11-26] MEDS: Colchicine 0.6 MG TAB PO SCH (09:00)
[2017-11-26] MEDS ORDERED: Furosemide 40 MG/4 ML VIAL SLOW IVP SCH (09:00)
[2017-11-26] MEDS: Thyroid 60 MG TAB PO SCH (09:01)
[2017-11-26 10:36] LABS: Bilirubin Negative (Negative); Blood, Urine Moderate (Negative); Clarity CLOUDY (Clear); Glucose, Urine (Dipstick) Negative (Negative); Leukocyte Moderate (Negative); Nitrite Positive (Negative); Protein, Urine (Dipstick) 30 mg/dL (Neg-Trace); Specific Gravity, Urine 1.021 (1.002-1.036)
[2017-11-26 10:42] LABS: Pathc Cast-AUWi Flag 1.88 (0-2.49)
[2017-11-26 10:50] LABS: Bacteria/HPF 3+ HPF (None Seen); Hyaline Casts/LPF 0-3 HYALINE CAST LPF (0-3 Hyaline)
[2017-11-26 16:06] VITALS: BP 115/66; TEMP 99
--- NOTE | 2017-11-27 00:43 | DIS ---
DATE OF ADMISSION: 11/23/2017 DATE OF DISCHARGE: 11/26/2017 ADMITTING DIAGNOSES: 1. Paroxysmal atrial fibrillation. A. Status post elective pulmonary venous isolation posterior wall and inferoseptal left atrial ablat ion by Dr. Cottrell on 11/23/2017. 2. Structurally normal heart in the past. 3. Risk factors include prediabetes, hypertension, hyperlipidemia, and obesity. DISCHARGE DIAGNOSES: 1. Status post ablation procedure on 11/23/2017 as above. 2. Development of postoperative pericardial chest pains, history of pericarditis, treated with colch icine. 3. Development of concomitant hypertension and bradycardia in the setting of extreme nausea, respond ing to fluids and atropine. A. Underwent a 2D echocardiogram post ablation demonstrating no pericardial effusion as well as abdo renu and chest CT showing no evidence of pulmonary embolism or retroperitoneal bleed. 4. Mild fluid overload due to volume replacement, responded to diuretics. HOSPITAL COURSE: Mrs. Novak was admitted on the 1st after the elective pulmonary venous isolation p rocedure. The procedure progressed well without complication and she was stable overnight, but devel oped a pleuritic/pericarditis-like chest pains. This responded well to Toradol, but she also develop ed nausea on advancing her diet, which is very severe. The severe nausea provoked hypertension and b radycardia transiently, responding well to atropine and fluids and transient dopamine use. Workup wa s negative as above. She received a significant amount of fluids over the day 1 postop, and eventual ly diuretics for reducing her fluid levels. On the day of discharge, her BNP was still elevated, but she received IV Lasix and her exertional dyspnea has improved. Overall, otherwise her pleuritic viridiana st pains and dysphagia symptoms have resolved. She maintained sinus rhythm throughout the hospitaliz ation. She had a minimal decrease in hemoglobin to 9.6. She resumed her Eliquis medication. Her ur ine was significant for white cell count increase and leukocyte esterase positivity. She was supplie d with nitrofurantoin for that. On discharge, she was stable with creatinine values back to normal. Again, the current EKG shows camryn ntained sinus rhythm. Although, she had elevated troponin levels, this was attributed to the left at rial ablation procedure. No evidence of myocardial infarction is truly detected. On discharge, she will be discharged on Carafate 1 gram q.i.d. She will be requested to take Protoni x 40 mg daily. She has requested to continue on Eliquis 5 mg twice a day. DISCHARGE MEDICATIONS: Colchicine 0.6 twice a day for next 10 days requested. She is to consider re suming diltiazem during her blood pressures. Lasix 40 mg p.o. daily with 20 mEq of potassium daily w ill be given as needed only. She is encouraged to take Motrin if pleuritic chest pains occur. She i s asked to continue her thyroid supplementation as before. She is requested to notify us if any furt her dizziness, loss of consciousness, extreme nausea, vomiting, or significant palpitations occurs. The routine followup is requested in 6 weeks. She is asked to follow up with her primary care physic shady regarding her UTI if necessary.
== END 2017-11-26 15:58 | disposition home or self-care (01) | DRG 274 ==
LOC: CCL 05:56 → 2SW 17:49 → OBSVTOIN 17:49 → CCU 11-24 15:26 → 2NO 11-25 11:30
PROVIDERS: ADMIT Internal Medicine Cardiovascular Disease; ATTEND Internal Medicine Cardiovascular Disease
PROC: 02583ZZ Destruction of Conduction Mechanism, Percutaneous Approach (ICD-10-PCS; principal; 2017-11-23)
PROC: 02K83ZZ Map Conduction Mechanism, Percutaneous Approach (ICD-10-PCS; 2017-11-23)
PROC: 4A023FZ Measurement of Cardiac Rhythm, Percutaneous Approach (ICD-10-PCS; 2017-11-23)
PROC: 4A0234Z Measurement of Cardiac Electrical Activity, Percutaneous Approach (ICD-10-PCS; 2017-11-23)
DX: I48.0 Paroxysmal atrial fibrillation (principal); I31.9 Disease of pericardium, unspecified; Z68.41 Body mass index [BMI] 40.0-44.9, adult; I97.89 Other postprocedural complications and disorders of the circulatory system, not elsewhere classified; I95.9 Hypotension, unspecified; I10 Essential (primary) hypertension; E78.5 Hyperlipidemia, unspecified; R73.03 Prediabetes; E66.9 Obesity, unspecified; D64.9 Anemia, unspecified; E03.9 Hypothyroidism, unspecified; Z98.84 Bariatric surgery status; Z79.4 Long term (current) use of insulin; E87.70 Fluid overload, unspecified
CPT/HCPCS: 36415; 71275; 74177; 76942; 80048; 80053; 81001; 82553; 82565; 83880; 84484; 85014; 85018; 85025; 85049; 85347; 85610; 85730; 87077; 87086; 87186; 92960; 93005; 93010; 93306; 93613; 93623; 93656; 93662; C1730; C1731; C1732; C1759; C1769; J0461; J1100; J1200; J1265; J1644; J1885; J1940; J2370; J2405; J2550; J2704; J2720; J2920; J3010

== ENCOUNTER 2018-06-18 12:32 | Outpatient (CLI) | payer BC ==
--- NOTE | 2018-06-18 13:46 | MMO ---
Bilateral MAMMO Bilat Screen [facility]. CLINICAL HISTORY: Patient is 53 years old and is seen for screening. The patient has the following family history of breast cancer: mother, at age 50 and maternal grandmother, (great). The patient has no personal history of cancer. VIEWS: The views performed were: bilateral craniocaudal with tomosynthesis and bilateral mediolateral oblique with tomosynthesis. FILMS COMPARED: The present examination has been compared to prior imaging studies performed at [facility] on 01/23/2009, 09/16/2011 and 12/05/2015, and at [facility] on 10/13/2000 and 04/30/2004. MAMMOGRAM FINDINGS: There are scattered fibroglandular densities. There are no suspicious masses, suspicious calcifications, or new areas of architectural distortion. IMPRESSION: THERE IS NO MAMMOGRAPHIC EVIDENCE OF MALIGNANCY. A ROUTINE FOLLOW-UP MAMMOGRAM IN 1 YEAR IS RECOMMENDED. THE RESULTS OF THIS EXAM WERE SENT TO THE PATIENT. ACR BI-RADS Category 1 - Negative MAMMOGRAPHY NOTE: 1. A negative mammogram report should not delay a biopsy if a dominant of clinically suspicious mass is present. 2. Approximately 10% to 15% of breast cancers are not detected by mammography. 3. Adenosis and dense breasts may obscure an underlying neoplasm.
== END 2018-06-18 12:33 | disposition home or self-care (01) ==
LOC: BICMAMMO 12:32
PROVIDERS: ATTEND Obstetrics & Gynecology
DX: Z12.31 Encounter for screening mammogram for malignant neoplasm of breast (principal); Z80.3 Family history of malignant neoplasm of breast
CPT/HCPCS: 77063; 77067

== ENCOUNTER 2018-10-27 11:50 | Outpatient (CLI) | payer BC ==
--- NOTE | 2018-10-27 12:46 | RAD ---
CHEST TWO VIEWS: 10/27/18 INDICATION: Lymphadenopathy with left sided neck swelling. COMPARISON: Prior single view of the chest dated 07/22/16. FINDINGS: There is a 1.8 cm nodule prominence involving the right hilar region which is new suspicious for barrett r adenopathy. No appreciable adenopathy is seen involving the left hilar region. The lungs are clear. No pleural effusion, pneumothorax is evident. No acute osseous abnormality is evident. No acute osse ous abnormality is evident. IMPRESSION: Interval development of right sided hilar adenopathy. POS: [facility]
== END 2018-10-27 11:51 | disposition home or self-care (01) ==
LOC: SCSRAD 11:50
PROVIDERS: ATTEND Family Medicine
DX: R59.1 Generalized enlarged lymph nodes (principal)
CPT/HCPCS: 36415; 71046; 80053; 85025

== ENCOUNTER 2018-11-09 09:28 | Outpatient (CLI) | payer BC ==
--- NOTE | 2018-11-09 11:37 | CT ---
CT CHEST WITH CONTRAST CLINICAL INDICATION: Hilar lymphadenopathy. COMPARISON: CTA chest on 11/24/2017. Chest x-ray on 10/27/2018. FINDINGS: Aorta: The aorta is normal in caliber without evidence of an aortic dissection. Lungs: Clear without evidence of consolidation or pleural effusion. Mediastinum: There is no evidence of lymphadenopathy. There is no enlarged lymph node seen in the hil ar regions bilaterally. The masslike appearing density seen within the right hilar region on recent chest x-ray is not seen on today's tobacco drying machine operator image of the chest. No mass or enlarged lymph node is seen i n the right hilar region. Calcification's are seen adjacent to the azygos vein which may represent calcified granulomata. Thyroid gland: Normal in appearance where visualized. Osseous structures: Postsurgical changes right shoulder are again seen. Mild degenerative changes are noted in the spine. Chest wall: No abnormality visualized. Upper abdomen: Postsurgical changes of the stomach are noted. A small hiatal hernia is present. Visua lized upper abdomen otherwise demonstrates a normal CT appearance. IMPRESSION: 1. No acute findings. 2. No lymphadenopathy is seen, and there is no evidence of a right hilar mass. The masslike structure in the right hilar region on prior chest x-ray is no longer visualized on the tobacco drying machine operator view of the chest for this examination, and no abnormality is seen in the right hilar region.
== END 2018-11-09 09:29 | disposition home or self-care (01) ==
LOC: SCSCT 09:28
PROVIDERS: ATTEND Family Medicine
DX: R59.0 Localized enlarged lymph nodes (principal)
CPT/HCPCS: 71260

== ENCOUNTER 2018-11-29 09:43 | Inpatient (IN) | payer BC ==
[2018-11-29 10:08] LABS: #Basophils 0.1 thou/uL (0.0-0.2); #Eosinphils 0.1 thou/uL (0.0-0.7); #Lymphocytes 2.3 thou/uL (1.20-3.40); #Monocytes 0.7 thou/uL (0.11-0.59); #Neutrophils 7.4 thou/uL (1.40-6.50); %Basophils 0.5 % (0.0-1.0); %Eosinophils 1.2 % (0.0-10.0); %Lymphocytes 21.5 % (21.0-51.0); %Monocytes 6.4 % (0.0-10.0); %Neutrophils 70.3 % (42.0-75.0); Hemoglobin 12.6 g/dL (12.0-16.0); Mean Corpuscular HGB CONC 32.5 g/dL (32.0-36.0); Mean Corpuscular Hemoglobin 27.6 pg (27.0-31.0); Mean Corpuscular Volume 85.1 fL (78.0-98.0); Mean Platelet Volume 8.5 fL (7.4-10.4); Platelet Count 264 thou/uL (130-400); RBC Distribution Width 13.7 % (11.5-14.5); Red Blood Cell (RBC) Count 4.55 mill/uL (4.20-5.40); White Blood Cell (WBC) Count 10.5 thou/uL (4.8-10.8)
[2018-11-29 10:11] LABS: PTT 24.3 SEC (22.9-36.1); Prothrombin Time 13.1 SEC (12.0-14.7)
--- NOTE | 2018-11-29 10:17 | CT ---
CT HEAD WITHOUT IV CONTRAST COMPARISON: None HISTORY: Level 1 stroke alert. Sudden onset of vertigo. TECHNIQUE: Axial CT imaging at 5 mm intervals from vertex through skull base without contrast FINDINGS: There are symmetric area of increased density in each basal ganglia likely due to basal ganglia calci fications. A subcentimeter low-density focus is seen in the right cerebellar hemisphere likely due to a tiny infarction which is likely more remote in origin. There is no evidence of an acute cortical infarction, hemorrhage, mass effect, or midline shift. The ventricular system is normal in size, shape, and position. Visualized paranasal sinuses are clear. Osseous structures appear intact. IMPRESSION: 1. No acute intracranial abnormality demonstrated. 2. Subcentimeter infarction right cerebellar hemisphere. Exact age is indeterminate, but this is like ly more remote in origin. 3. Above findings discussed with Dr. Phipps in the emergency department on 11/29/2018 at 1014 hours. Fi ndings were not relayed to Dr. Phipps at an earlier time due to a critical patient in the emergency department.
[2018-11-29 10:20] LABS: ALT (SGPT) 16 U/L (8-55); AST (SGOT) 16 U/L (5-34); Albumin 4.5 g/dL (3.5-5.0); Alkaline Phosphatase 90 U/L (40-110); Anion Gap 13 mmol/L (10-20); BUN (Urea Nitrogen) 20 mg/dL (9.8-20.1); Bilirubin, Total 0.4 mg/dL (0.2-1.2); CK (CPK) 110 U/L (29-168); Calc. Creatinine Clearance 0 mL/min (70-130); Calcium 9.5 mg/dL (7.8-10.44); Carbon Dioxide 26 mmol/L (22-29); Chloride 105 mmol/L (98-107); Estimated GFR-MDRD 72; Globulin 2.7 g/dL (2.4-3.5); Glucose 93 mg/dL (70-105); Protein, Total 7.2 g/dL (6.0-8.3); Sodium 140 mmol/L (136-145)
[2018-11-29] MEDS ORDERED: Lorazepam 2 MG/ML VIAL ONE (12:06)
[2018-11-29] MEDS ORDERED: Meclizine HCl 25 MG TAB ONE (12:06)
[2018-11-29] MEDS ORDERED: Ondansetron PF 4 MG/2 ML Vial ONE (12:06)
[2018-11-29] MEDS ORDERED: Aspirin Chewable 81 MG TAB ONE (12:06)
--- NOTE | 2018-11-29 12:12 | CT ---
CTA HEAD WITH CONTRAST: Date: 11/29/18 Axial tomograms obtained following cerebral angio protocol with multiplanar reconstruction and 3D pos tprocessing. INDICATION: Left side numbness. Stroke protocol. FINDINGS: The intracranial internal carotid arteries are patent and symmetric. Both anterior cerebral arteries are patent and symmetric. Middle cerebral arteries are patent and symmetric. M2 and M3 branches appear symmetric. Basilar artery is patent. Posterior cerebral arteries appear patent and symmetric. IMPRESSION: Unremarkable CTA head. POS: [facility]
[2018-11-29 13:22] VITALS: BMI 41.3
[2018-11-29 13:26] LABS: Bilirubin Negative (Negative); Blood, Urine Negative (Negative); Clarity Clear (Clear); Glucose, Urine (Dipstick) Normal (Negative); Leukocyte Negative Leu/uL (Negative); Nitrite Negative (Negative); Protein, Urine (Dipstick) Negative (Neg-Trace); Urobilinogen Normal mg/dL (Less than 2)
[2018-11-29] MEDS ORDERED: Sodium Chloride 0.9% 1,000 ML IV SCH (13:30)
--- NOTE | 2018-11-29 14:23 | ULT ---
Carotid duplex sonogram HISTORY: CVA. Vascular disease. FINDINGS: Right: Color and spectral Doppler evaluation, peak systolic velocity of 69 cm/s, and IC to CC ratio o f 0.7 suggest no hemodynamically significant stenosis within the extracranial right ICA. Antegrade flow within the vertebral artery. Left: Color and spectral Doppler evaluation, peak systolic velocity of 101 cm/s, and IC to CC ratio o f 0.8 suggest no hemodynamically significant stenosis within the extracranial left ICA. Antegrade flow within the vertebral artery. IMPRESSION: No sonographic evidence of significant extracranial ICA stenosis.
[2018-11-29] MEDS ORDERED: Acetaminophen 325 MG TAB PO PRN (15:14)
[2018-11-29] MEDS ORDERED: Ondansetron PF 4 MG/2 ML Vial IVP PRN (15:14)
[2018-11-29] MEDS ORDERED: Ondansetron ODT 4 MG TAB PO PRN (15:14)
[2018-11-29] MEDS ORDERED: Acetaminophen 650 MG Suppository PR PRN (15:14)
--- NOTE | 2018-11-29 16:20 | PDOC.EVN ---
Event Note - Event Note Event Note: interrviewed and examined, discusssed with Fawn Ross IZABELLA. agree with management and plan
[2018-11-29] MEDS: Sodium Chloride 0.9% 1,000 ML IV SCH (16:30)
--- NOTE | 2018-11-29 16:41 | MRI ---
MRI BRAIN WITHOUT CONTRAST: HISTORY: Left-sided weakness. Numbness with dizziness. Nausea. FINDINGS: The calvarium has a normal T2 marrow signal intensity. Midline brain parenchymal structures are unrem arkable. No hemorrhage on the axial gradient echo sequence. No parenchymal mass, mass effect or midline shift. Brain volume is age appropriate. Cortical lay whi te matter differentiation is preserved. No evidence of hydrocephalus. Adequate aeration of the sinuses and mastoid air cells. Central arterial flow voids are maintained. Absent restricted diffusion. No significant T2 or FLAIR white matter hyperintensities. IMPRESSION: Unremarkable noncontrast brain MRI. POS: [facility]
[2018-11-29 17:12] LABS: Lactic Acid 0.6 mmol/L (0.5-2.2)
--- NOTE | 2018-11-29 18:57 | RAD ---
XR Hand Rt 3 View STANDARD History: Pain. Evaluate for osteomyelitis. Comparison: None. Findings: There is erosion along the medial margin of the proximal phalanx head and neck small finger . There is also a subtle erosion on the medial margin of the proximal phalanx head ring finger. No acute fracture or malalignment. Impression: Erosion along the medial margin proximal phalanx head and neck small finger and ring fing er with soft tissue swelling. If this is the area of concern, this may reflect osteomyelitis.
--- NOTE | 2018-11-29 19:49 | HP ---
PRIMARY CARE PHYSICIAN: Dr. Sawyer Barrera. CHIEF COMPLAINT: Left arm weakness and numbness. HISTORY OF PRESENT ILLNESS: Ms. Novak is a very pleasant 53-year-old woman, who presents to the emergency department after driving herself from work due to sudden onset of left arm numbness and weakness that started at approximately 09:00 a.m. while she was at work. The patient states an odd sensation came over her, she felt as if she might pass out and therefore squatted. She felt lightheaded, but denies any syncope. Denies any chest pain or shortness of breath. No diaphoresis. No vision changes or headaches. She states at the same time, she experienced a numb feeling in her left upper extremity. As she was driving, she began to notice increased weakness in the left arm. The patient states once she arrived to emergency department and was being examined, there is when she began to notice she had altered sensation involving the left side of her face. Denies any numbness or weakness in her left leg. She has never experienced any symptoms like this before. The patient was just in the [facility] Emergency Department yesterday evening due to swelling and redness of the right hand at the third MTP joint. She states she had a wound inflicted by a gordon of a hardhead catfish yesterday. It became red, swollen, and obviously infected. She states the pain was tracking from the left hand up to her left elbow. She received 1 dose of IV antibiotics with clindamycin and sent home on oral clindamycin, which she has not picked up yet. She has not had any fevers. She states the pain is limited to the right hand. However, she has noted it has become more swollen, red, and warm as the morning has progressed. She has not received any additional antibiotics since being in the emergency department. She has normal sensation on the right hand. In the Emergency Department, she did undergo laboratory studies, which showed a normal full blood count. Renal function and LFTs unremarkable. CK was 110. Troponin negative. Urinalysis was done, which was also unremarkable. She has undergone investigations including a CT of the brain, which showed subcentimeter infarction in right cerebellar hemisphere felt to be remote in origin. Those findings were communicated with Dr. Phipps. Otherwise, no acute intracranial abnormality present. She also underwent a CT angiogram, which was unremarkable. The patient is now being referred for further CVA/TIA workup. PAST MEDICAL HISTORY: 1. Hypothyroidism. 2. Atrial fibrillation. 3. Hypertension. PAST SURGICAL HISTORY: 1. Cardiac ablation. 2. Gastric bypass. 3. x3. 4. Right shoulder surgery. 5. Tonsillectomy. SOCIAL HISTORY: The patient denies any history of smoking, heavy alcohol consumption, or illicit drug use. She lives with her family and is fully independent. ALLERGIES: 1. BACTRIM. 2. PENICILLIN. 3. SULFA. CURRENT MEDICATIONS: 1. Losartan. 2. Synthroid. 3. Protonix. PHYSICAL EXAMINATION: GENERAL: The patient appears well developed, well nourished, is in no acute distress. VITAL SIGNS: Temperature 98.3, pulse 63, respirations 16, O2 saturation 96% on room air, blood pressure 141/76. HEENT: Normocephalic and atraumatic. Pupils are equal, round, and reactive to light. Sclerae icterus. Oropharynx is clear. NECK: Supple. LUNGS: Clear to auscultation bilaterally without any wheezes, rales, or rhonchi. CARDIAC: Regular rate and rhythm without audible murmurs, rubs, or gallops. ABDOMEN: Soft, nontender, nondistended. Normoactive bowel sounds present. EXTREMITIES: Right hand is notable for erythema and swelling involving the dorsal aspect with the one present at the third MTP joint. It is warm to touch with tracking up to the mid hand. No further tracking beyond that. Normal sensation. No lower leg swelling or edema. NEUROLOGIC: Alert and oriented x3. Facial movements normal. Speech normal. There is some slightly reduced sensation involving the left side of her face, nearly resolved per the patient. Power, 5/5 in all limbs with slightly reduced sensation in the left upper extremity. No altered sensation in the left leg. No cerebellar signs or past-pointing. SKIN: Warm and dry. INVESTIGATIONS: As mentioned above in HPI. IMPRESSION AND PLAN: Ms. Novak is a very pleasant 53-year-old woman, who has been admitted for management of the following; 1. Left upper extremity numbness/weakness as well as left facial numbness. The patient is undergoing CVA/TIA workup. Thus far, investigations have been unremarkable. We have requested an MRI of the brain as well as carotid Dopplers. We will check lipid panel with morning labs. Consult placed to Neurology. The patient's symptoms have now resolved. Echocardiogram noted as well. The patient does have a history of atrial fibrillation. The patient has undergone ablation for this in the past. We will obtain a baseline EKG as it does not appear once been done in the emergency department. 2. Right hand cellulitis. This is secondary to puncture wound from the gordon of a hardhead catfish. Initiated on clindamycin use in the emergency department, however, did not continue p.o. antibiotics as she was planning to pick it up today. Following discussion with Dr. Naranjo, we will place the patient on clindamycin 100 mg IV t.i.d. and add on Levaquin. Consult has been placed to Orthopedics. The patient was supposed to have seen someone as an outpatient today. We will order an x-ray of the right hand to rule out osteomyelitis. Lactic acid added on to labs. 3. Hypothyroidism. Resume home medications once verified. 4. Gastroesophageal reflux disease. Resume home Protonix. 5. Gastrointestinal prophylaxis. As mentioned, we will resume home Protonix. 6. Deep venous thrombosis prophylaxis, on mechanical SCDs. 7. Code status, full. Her surrogate decision maker is her daughter, Jolene Herring. The patient's case was discussed with Dr. Naranjo, who agrees upon the care as described above. Job ID: [id number]
[2018-11-29] MEDS ORDERED: Famotidine/PF 20 mg/2ml Vial SLOW IVP SCH (21:00)
[2018-11-29] MEDS: Clindamycin/D5W 900 MG in Premix Bag 1 BAG IVPB SCH (21:45)
--- NOTE | 2018-11-29 23:46 | CON ---
DATE OF CONSULTATION: 11/29/2018 CONSULTING PHYSICIAN: Hospitalist Service. IMPRESSION: Probable migraine aura. PLAN: Continue baby aspirin a day. HISTORY OF PRESENT ILLNESS: Ms. Novak is a 53-year-old female with no significant past history. She came in after she developed acute onset of left arm numbness and tingling along with a feeling of dizziness and nausea. The corner of her mouth on the right side felt a little bit numb. Her symptoms lasted about 4 hours. She denies ever developing a headache. She has never had anything like this before. She denies a history of migraine. She has no vascular risk factor. She has not used any drugs. PAST MEDICAL HISTORY: Otherwise negative. ALLERGIES: PENICILLIN, SULFA, CRABS. MEDICATION LIST: Aspirin and vitamins. FAMILY HISTORY: Noncontributory. REVIEW OF SYSTEMS: Ten-system review of systems is otherwise negative. PHYSICAL EXAMINATION: GENERAL: She is an overweight middle-aged woman, in no distress. VITAL SIGNS: Blood pressure 138/76, pulse 64. She has been afebrile. HEENT: Pupils are equal and reactive. Conjunctivae clear. Oropharynx clear. NECK: Supple. No lymphadenopathy. EXTREMITIES: She has some swelling and tenderness on the dorsum of her right hand. The area looks erythematous. NEUROLOGIC: She is alert and appropriate. Her speech is fluent and clear. Cranial nerves 2 through 12 are intact. Motor exam shows good strength bilaterally. She has no fix or drift. There is no tremor or dysmetria present. She can walk independently. Sensations intact bilaterally. LABORATORY STUDIES: Unremarkable CBC, coags, serum chemistries, and urinalysis. MRI of the brain was normal, CT angiogram of the head was normal. Carotid ultrasound was clear. SUMMARY: Middle-aged woman with some transient neurologic symptoms lasting at least 4 hours. She did not develop a headache to confirm migraine but given her negative workup, I suspect that this is a likely etiology. She will continue aspirin and she can be followed up as an outpatient. Job ID: [id number]
[2018-11-30 06:20] LABS: #Eosinphils 0.2 thou/uL (0.0-0.7); #Monocytes 0.4 thou/uL (0.11-0.59); #Neutrophils 3.7 thou/uL (1.40-6.50); %Basophils 0.6 % (0.0-1.0); %Eosinophils 2.5 % (0.0-10.0); %Lymphocytes 31.7 % (21.0-51.0); %Monocytes 6.3 % (0.0-10.0); Hemoglobin 11.5 g/dL (12.0-16.0); Mean Corpuscular HGB CONC 32.5 g/dL (32.0-36.0); Mean Corpuscular Hemoglobin 27.7 pg (27.0-31.0); Mean Corpuscular Volume 85.2 fL (78.0-98.0); Mean Platelet Volume 8.6 fL (7.4-10.4); Platelet Count 224 thou/uL (130-400); RBC Distribution Width 13.4 % (11.5-14.5); Red Blood Cell (RBC) Count 4.14 mill/uL (4.20-5.40); White Blood Cell (WBC) Count 6.3 thou/uL (4.8-10.8)
[2018-11-30] MEDS: Sodium Chloride 0.9% 1,000 ML IV SCH ×3 (06:24→21:12)
[2018-11-30] MEDS: Clindamycin/D5W 900 MG in Premix Bag 1 BAG IVPB SCH ×3 (06:24→23:24)
[2018-11-30 06:43] LABS: Anion Gap 13 mmol/L (10-20); BUN (Urea Nitrogen) 11 mg/dL (9.8-20.1); Calc. Creatinine Clearance 141 mL/min (70-130); Calcium 8.9 mg/dL (7.8-10.44); Carbon Dioxide 23 mmol/L (22-29); Cardiac Risk 3.9 (Less than 4.5); Chloride 109 mmol/L (98-107); Cholesterol 181 mg/dl (< 200 Desired); Estimated GFR-MDRD 78; Glucose 86 mg/dL (70-105); HDL Cholesterol 46 mg/dL (>60 Neg Risk); LDL Cholesterol, Calculated 120 mg/dL; Potassium 4.1 mmol/L (3.5-5.1); Sodium 141 mmol/L (136-145); Triglycerides 75 mg/dL (Less than 150)
[2018-11-30] MEDS: Multivit, Therapeutic 1 TAB PO SCH (08:34)
[2018-11-30] MEDS: Thyroid 60 MG TAB PO SCH (08:35)
[2018-11-30] MEDS: Aspirin 81 mg Enteric Coated Tablet PO SCH (08:37)
[2018-11-30] MEDS ORDERED: Ondansetron PF 4 MG/2 ML Vial ONE (12:13)
[2018-11-30] MEDS ORDERED: Dexamethasone 20 MG/5 ML VIAL ONE (12:13)
[2018-11-30] MEDS ORDERED: Lidocaine 1% PF 5 ML VIAL ONE (12:13)
[2018-11-30] MEDS ORDERED: PROPOFOL 200 MG/20 ML VIAL ONE (12:13)
[2018-11-30] MEDS ORDERED: Levofloxacin 500 mg/D5W 100 ml Premix Bag ONE (16:42)
[2018-11-30] MEDS ORDERED: Fentanyl 100 MCG/2 ML VIAL ONE (17:32)
[2018-11-30] MEDS ORDERED: Midazolam HCl 2 mg/2 ml Vial ONE (17:32)
[2018-11-30] MEDS ORDERED: Betamet Acet/Betamet Na Ph 30 MG/5 ML VIAL ONE (17:40)
[2018-11-30] MEDS ORDERED: Bupivacaine PF 0.5% 30 ML VIAL ONE (17:40)
[2018-11-30] MEDS ORDERED: Sodium Chloride 0.9% 10 ML ONE (17:40)
[2018-11-30] MEDS ORDERED: Bacitracin Zinc Ointment 30 gm TUBE ONE (17:40)
[2018-11-30] MEDS ORDERED: Promethazine HCl 25 MG/ML VIAL SLOW IVP PRN (19:08)
[2018-11-30] MEDS ORDERED: Ondansetron HCl/PF 4 MG/2 ML Vial IVP PRN (19:08)
[2018-11-30] MEDS ORDERED: Promethazine HCl 25 MG/ML VIAL IM PRN ×2 (19:08→20:47)
[2018-11-30] MEDS ORDERED: Ketorolac Tromethamine 30 MG/ML VIAL ONE (19:33)
[2018-11-30] MEDS ORDERED: Morphine 4 MG/ML VIAL SLOW IVP PRN (20:46)
[2018-11-30] MEDS: Gentamicin Sulfate 80 MG in Premix Bag 1 BAG IVPB SCH (21:12)
[2018-11-30] MEDS: Vancomycin HCl 1 GM in Premix Bag 1 BAG IVPB SCH (22:06)
--- NOTE | 2018-12-01 00:27 | PDOC.HOSPP ---
- Subjective Encounter Date: 11/30/18 Encounter Time: 14:00 Subjective: Patient seen and examined for paresthesias and Rt hand infection. No new focal deficits. No CP/SOB. No other complaints. No overnight events - Objective Vital Signs & Weight: Vital Signs (12 hours) Temp Pulse Resp BP Pulse Ox 11/30/18 23:18 98.2 F 76 20 142/67 H 94 L 11/30/18 19:55 97.6 F 63 20 138/58 L 99 Weight Weight 233 lb 8 oz Result Diagrams: 11/30/18 05:48 11/30/18 05:48 Radiology Reviewed by me: Yes (MRI - Neg, Echo - normal EF) EKG Reviewed by me: Yes (Tele SR) Hospitalist ROS - Review of Systems Respiratory: denies: cough, dry, shortness of breath, hemoptysis, SOB with excertion, pleuritic pain, sputum, wheezing, other Cardiovascular: denies: chest pain, palpitations, orthopnea, paroxysmal noc. dyspnea, edema, light headedness, other - Medication Medications: Active Medications Generic Name Dose Route Start Last Admin Trade Name Freq PRN Reason Stop Dose Admin Acetaminophen 650 mg 11/29/18 15:14 11/30/18 11:40 Tylenol PO 650 mg Q4H PRN Administration Headache/Fever/Mild Pain (1-3) Aspirin 81 mg 11/30/18 09:00 11/30/18 08:37 Ecotrin PO 81 mg DAILY MASOOD Administration Cholecalciferol 1,000 units 11/30/18 09:00 11/30/18 08:34 Vitamin D3 PO 1,000 units DAILY MASOOD Administration Sodium Chloride 1,000 mls @ 75 mls/hr 11/29/18 15:15 11/30/18 21:12 Normal Saline 0.9% IV 1,000 mls .[id number] MASOOD Administration Clindamycin Phosphate/Dextrose 50 mls @ 100 mls/hr 11/29/18 22:00 11/30/18 23 :24 900 mg/ Device IVPB 50 mls Q8HR MASOOD Administration Levofloxacin 500 mg/ Device 100 mls @ 100 mls/hr 11/29/18 16:00 11/30/18 19: 07 IVPB Not Given Q24HR MASOOD Gentamicin Sulfate 80 mg/ 100 mls @ 200 mls/hr 11/30/18 22:00 11/30/18 21:12 Device IVPB 100 mls Q8HR MASOOD Administration Vancomycin HCl 1 gm/ Device 200 mls @ 200 mls/hr 11/30/18 21:00 11/30/18 22: 06 IVPB 200 mls 0500,1300,2100 MASOOD Administration Multivitamins 1 tab 11/30/18 09:00 11/30/18 08:34 Theragran PO 1 tab DAILY MASOOD Administration Pantoprazole Sodium 40 mg 11/30/18 09:00 11/30/18 08:34 Protonix PO 40 mg QAM MASOOD Administration Sodium Chloride 10 ml 11/29/18 21:00 11/30/18 21:06 Flush - Normal Saline IVF Not Given Q12HR MASOOD Thyroid 120 mg 11/30/18 09:00 11/30/18 08:35 [place] Thyroid PO 120 mg QAM MASOOD Administration - Exam General Appearance: NAD Neck: supple, no JVD Heart: RRR, no gallops Respiratory: CTAB, no rales, no ronchi Gastrointestinal: soft, non-tender, normal bowel sounds Extremities: no edema Hosp A/P - Plan Left sided weakness/paresthesias - suspected due to Migraine per Neurology Rt hand cellulitis/abscess Morbid Obesity BMI 41.4 HTN Hypothyrodism h/o Afib s/p ablation Chronic Anemia CKD 2 PLAN: Cont Clindamycin/Levaquin/Vancomycin Monitor Vancomycin level I&D today Cont PPI Cont low dose ASA Ambulate
[2018-12-01] MEDS: Vancomycin HCl 1 GM in Premix Bag 1 BAG IVPB SCH ×2 (04:07→17:56)
[2018-12-01] MEDS: Gentamicin Sulfate 80 MG in Premix Bag 1 BAG IVPB SCH ×2 (05:37→17:56)
[2018-12-01] MEDS: Clindamycin/D5W 900 MG in Premix Bag 1 BAG IVPB SCH ×2 (06:37→17:56)
[2018-12-01] MEDS ORDERED: Saccharomyces boulardii 250 MG CAP PO SCH (09:00)
[2018-12-01] MEDS: Aspirin 81 mg Enteric Coated Tablet PO SCH (09:02)
[2018-12-01] MEDS: Multivit, Therapeutic 1 TAB PO SCH (09:02)
[2018-12-01] MEDS: Thyroid 60 MG TAB PO SCH (10:29)
[2018-12-01 15:07] VITALS: BP 148/70; TEMP 98.1
[2018-12-01] MEDS ORDERED: Senokot 8.6 MG TAB PO PRN (15:13)
[2018-12-01] MEDS: HYDROcodone/Acetaminophen 5/325 mg Tablet PO PRN ×2 (15:37→19:10)
--- NOTE | 2018-12-01 20:32 | DIS ---
DATE OF ADMISSION: 11/29/2018 DATE OF DISCHARGE: 12/01/2018 DISCHARGE DISPOSITION: Home. FOLLOWUP: 1. Follow up with primary care physician, Dr. Sawyer Barrera in 1 week. 2. Follow up with Dr. Santos in 1 to 2 weeks. ALLERGIES: THE PATIENT IS ALLERGIC TO: 1. PENICILLIN. 2. SULFA. DISCHARGE MEDICATIONS: 1. Rifampin 300 mg 3 times daily for 1 week. 2. Erythromycin 250 mg 3 times daily for 1 week. The patient will continue all other home medications includin. Aspirin. 2. Losartan. 3. Protonix. 4. [place] Thyroid. The patient was seen on the day of discharge. Denies any new complaints. No chest pain, shortness of breath, palpitations, fever, or chills reported. DIAGNOSTIC TESTS: 1. CT scan of the brain on admission was negative for acute findings. It showed a subcentimeter infarction in the right cerebellar hemisphere. 2. MRI of the brain on November 29, 2018, was negative for acute CVA. 3. CT angiogram of the head was negative for hemodynamically significant stenosis. 4. Carotid Doppler was negative for hemodynamically significant carotid stenosis. INPATIENT CONSULTANTS: 1. Neurology, Dr. Alvarado. 2. Hand Surgery, Dr. Santos. BRIEF HOSPITAL COURSE: The patient is a 53-year-old female with paroxysmal atrial fibrillation, hypertension, and hypothyroidism, presented to the hospital on November 29, 2018, with left-sided numbness along with dizziness, weakness, and nausea. She was recently evaluated at [facility] Emergency Room for a right hand infection and was started on clindamycin. Please refer to the history and physical for further details. The patient was admitted to the hospital with a diagnosis of right hand cellulitis with suspected CVA due to left-sided numbness. MRI of the brain was negative. She was evaluated by Neurology, Dr. Alvarado. According to Dr. Alvarado, the patient probably had migraine aura. CT angiogram of the brain was negative. She was advised to continue 81 mg of aspirin. The patient was found to have right hand cellulitis along with suspected abscess. The patient was seen by Hand Surgery, Dr. Santos. She underwent incision and drainage of the abscess yesterday. She was placed on IV antibiotic that has been changed to rifampin and erythromycin per Dr. Santos. She has been cleared by Dr. Santos for discharge. FINAL DIAGNOSES: 1. Left-sided numbness, suspected to be secondary to migraine aura per Neurology. 2. Right hand cellulitis/abscess, status post incision and drainage. 3. Morbid obesity with a BMI of 41.4. 4. Hypertension. 5. Hypothyroidism. 6. History of atrial fibrillation, status post ablation. 7. Chronic anemia. 8. Chronic kidney disease, stage 2. Plan of care was discussed with the patient in detail. She stated understanding. Job ID: [id number]
--- NOTE | 2018-12-02 14:17 | OP ---
DATE OF PROCEDURE: 11/30/2018 PREOPERATIVE DIAGNOSIS: Right middle finger intra-articular catfish abhijit puncture with abscess. PROCEDURES PERFORMED: 1. Right metacarpophalangeal joint PIP arthrotomy with drainage joint to the right. 2. Right middle finger arthrotomy with synovectomy, PIP joint. SPECIMEN REMOVED: Synovium, proximal interphalangeal joint, right middle finger. Culture sent. TOURNIQUET TIME: 10 minutes. ESTIMATED BLOOD LOSS: 10 mL. FINDINGS: Right middle finger proximal interphalangeal joint mucopurulence involving the proximal interphalangeal joint itself, intra-articular. HISTORY: The patient had reported while fishing, the abhijit of fish had entered this joint. She had fluctuance, erythema and thus clinical infection. DESCRIPTION OF PROCEDURE: After successful general endotracheal anesthesia, the limb was prepped and draped. We gave the right middle finger at the metacarpophalangeal joint level, a 12 mL of 0.5% Marcaine block without epinephrine. We then overdistended and flushed the PIP joint after inflating the tourniquet and exsanguinated the limb to 250 mmHg pressure ending in a zigzag incision off the midline and at the interval between the extensor central slip and the lateral bands into the joint. We elevated the joint and immediate mucopurulence escaped. We cultured. We had marked synovial thickening, so we performed a formal synovectomy as well. With the joint elevated, we irrigated with 3 L normal saline, Pulsavac pressure. We deflated the tourniquet. We did not close the wound. A wet-to-dry dressing was placed inside. Once hemostasis obtained, bulky dressing on top of this. The patient left the operating room without evidence of anesthetic or operative complication. Job ID: [id number]
--- NOTE | 2018-12-02 23:03 | EKG ---
Test Reason : Blood Pressure : / mmHG Vent. Rate : 062 BPM Atrial Rate : 062 BPM P-R Int : 146 ms QRS Dur : 084 ms QT Int : 384 ms P-R-T Axes : 053 007 -03 degrees QTc Int : 389 ms Normal sinus rhythm Low voltage QRS Borderline ECG When compared with ECG of 24-NOV-2017 14:42, ST no longer elevated in Lateral leads Confirmed by Reid GURROLA ([id number]) on 12/02/2018 11:03:22 PM Referred By: Confirmed By:Reid GURROLA
== END 2018-12-01 19:25 | disposition home or self-care (01) | DRG 982 ==
LOC: ERS 09:43 → 2SE 13:16
PROVIDERS: ADMIT Internal Medicine; ATTEND Internal Medicine
PROC: 0RBW0ZZ Excision of Right Finger Phalangeal Joint, Open Approach (ICD-10-PCS; principal; 2018-11-30)
PROC: 0R9U0ZZ Drainage of Right Metacarpophalangeal Joint, Open Approach (ICD-10-PCS; 2018-11-30)
DX: L02.511 Cutaneous abscess of right hand (principal); L03.113 Cellulitis of right upper limb; Z68.41 Body mass index [BMI] 40.0-44.9, adult; G43.109 Migraine with aura, not intractable, without status migrainosus; E03.9 Hypothyroidism, unspecified; I48.0 Paroxysmal atrial fibrillation; I12.9 Hypertensive chronic kidney disease with stage 1 through stage 4 chronic kidney disease, or unspecified chronic kidney disease; N18.2 Chronic kidney disease, stage 2 (mild); D63.1 Anemia in chronic kidney disease; E66.01 Morbid (severe) obesity due to excess calories; Z98.84 Bariatric surgery status; Z88.0 Allergy status to penicillin; Z88.1 Allergy status to other antibiotic agents; Z88.2 Allergy status to sulfonamides; Z91.013 Allergy to seafood; Z79.899 Other long term (current) drug therapy; Z79.82 Long term (current) use of aspirin
CPT/HCPCS: 36415; 36416; 70450; 70496; 70551; 80048; 80053; 80061; 81003; 82550; 83605; 83690; 84484; 85025; 85610; 85730; 87070; 87205; 93005; 93010; 93306; 93880; 96361; 96374; J0702; J1100; J1580; J1885; J1956; J2001; J2060; J2250; J2405; J2704; J3010; J3370; J3490; J8597; S0020

== ENCOUNTER 2019-01-10 12:35 | Day surgery (SDC) | payer BC ==
[2019-01-07 10:35] VITALS: BMI 40.2
[~2019-01-10 12:35] MED LIST: Dexamethasone 20 MG/5 ML VIAL ONE; Lidocaine 1% PF 5 ML VIAL ONE; Ondansetron PF 4 MG/2 ML Vial ONE; PROPOFOL 200 MG/20 ML VIAL ONE
[2019-01-10] MEDS ORDERED: Bupivacaine PF 0.5% 30 ML VIAL ONE (13:25)
[2019-01-10] MEDS ORDERED: Thrombin 5000 UNITS/5 ML VIAL ONE (13:25)
[2019-01-10] MEDS ORDERED: Bacitracin Zinc Ointment 30 gm TUBE ONE (13:25)
[2019-01-10] MEDS ORDERED: Sodium Chloride 0.9% 10 ML ONE (13:25)
[2019-01-10] MEDS ORDERED: Fentanyl 100 MCG/2 ML VIAL ONE (14:25)
[2019-01-10] MEDS ORDERED: Midazolam HCl 2 mg/2 ml Vial ONE (14:36)
[2019-01-10] MEDS ORDERED: Ketorolac Tromethamine 30 MG/ML VIAL ONE (16:19)
--- NOTE | 2019-01-10 23:49 | OP ---
DATE OF PROCEDURE: 01/10/2019 PREOPERATIVE DIAGNOSIS: Right middle finger proximal phalangeal joint, possible infection. FINDING: Synovitis without gross abscess with a 1 mm wide by 1 cm long area of intertendinous dilatation and possible granuloma or intertendinous abscess. PROCEDURES PERFORMED: 1. Tenotomy, extensor tendon for removal of the intertendinous area as described above. 2. Arthrotomy with synovectomy, complete, proximal phalangeal joint through the defect created by the granulomatous tendon removal. SPECIMEN SET: 1. Yes, granulomatous tendon. 2. Synovitis synovium. 3. Cultures, aerobic, anaerobic, fungal. INDICATIONS FOR PROCEDURE: The patient had a catfish abhijit entered into her finger, had persistent pain, erythema that had not responded to oral antibiotics and when the MRI done approximately 5 days prior to procedure, it showed thickening of the joint line and we felt possible chronic infection, perhaps with less but untreated infection secondary to her fish abhijit might be the culprit. For this reason, operative intervention was indicated. DESCRIPTION OF PROCEDURE: After successful general endotracheal anesthesia, the limb was prepped and draped. We gave her 20 mL of 0.5% Marcaine injection after time-out was done appropriately and then we exsanguinated the limb, used the old incision, but extended it 5 mm distal, 5 mm proximal, carried through the skin and subcutaneous tissue. Immediately, we dissected the skin from the extensor tendon with some adherence and saw the 1 cm long by 2 mm wide defect beginning just distal to the PIP joint coursing 8 mm proximal to the PIP joint. We then removed this with a sharp Winslow blade, sent as part of specimen. Underneath, we saw a very thick almost . We performed a radical synovectomy of the joint and sent this as well. Some of this tissue was superficial to the tendon, so it was excised off the tendon as well. We then extended the joint, retracted gently, irrigated with normal saline with antibiotics inside, 200 mL using a 20-gauge catheter with a needle and then 1800 mL with antibiotics inside using bulb syringe technique. We then deflated the tourniquet, obtained hemostasis, closed the tendon defect with a running Prolene in interrupted buried suture [id number]. We then closed the skin once the tourniquet was released and hemostasis was excellent using interrupted 4-0 nylon in mattress pattern. The patient then left the operating room without evidence of anesthetic or operative complication with bulky dressing applied, and a culture and specimen sent as described above. Job ID: [id number]
== END 2019-01-10 17:55 | disposition home or self-care (01) ==
LOC: SDC 12:35
PROVIDERS: ATTEND Orthopaedic Surgery Hand Surgery
PROC: 0RBW0ZZ Excision of Right Finger Phalangeal Joint, Open Approach (ICD-10-PCS; principal; 2019-01-10)
DX: M65.9 Synovitis and tenosynovitis, unspecified (principal); M60.241 Foreign body granuloma of soft tissue, not elsewhere classified, right hand; I10 Essential (primary) hypertension; E78.00 Pure hypercholesterolemia, unspecified; Z79.82 Long term (current) use of aspirin; Z79.899 Other long term (current) drug therapy; Z88.0 Allergy status to penicillin; Z88.2 Allergy status to sulfonamides; Z91.013 Allergy to seafood
CPT/HCPCS: 87070; 87102; 87205; 87206; 88304; J1100; J1885; J2001; J2250; J2405; J2704; J3010; J3370; J3490; S0020

== ENCOUNTER 2019-03-25 07:00 | Observation (INO) | payer BC ==
[2019-03-25] MEDS ORDERED: Bupivacaine PF 0.5% 30 ML VIAL ONE (08:16)
[2019-03-25] MEDS ORDERED: Bacitracin Zinc Ointment 30 gm TUBE ONE (08:17)
[2019-03-25 08:24] LABS: #Basophils 0.1 thou/uL (0.0-0.2); #Eosinphils 0.2 thou/uL (0.0-0.7); #Lymphocytes 2.3 thou/uL (1.20-3.40); #Monocytes 0.4 thou/uL (0.11-0.59); #Neutrophils 4.6 thou/uL (1.40-6.50); %Basophils 0.9 % (0.0-1.0); %Lymphocytes 29.8 % (21.0-51.0); %Monocytes 5.7 % (0.0-10.0); %Neutrophils 60.6 % (42.0-75.0); Hemoglobin 11.5 g/dL (12.0-16.0); Mean Corpuscular HGB CONC 31.8 g/dL (32.0-36.0); Mean Corpuscular Hemoglobin 26.6 pg (27.0-31.0); Mean Corpuscular Volume 83.6 fL (78.0-98.0); Mean Platelet Volume 8.6 fL (7.4-10.4); Platelet Count 249 thou/uL (130-400); RBC Distribution Width 13.1 % (11.5-14.5); Red Blood Cell (RBC) Count 4.33 mill/uL (4.20-5.40); White Blood Cell (WBC) Count 7.6 thou/uL (4.8-10.8)
[2019-03-25] MEDS ORDERED: Midazolam HCl 2 mg/2 ml Vial ONE ×2 (08:24→16:11)
[2019-03-25] MEDS ORDERED: HYDROmorphone 0.5 MG/0.5 ML SYRINGE ONE (08:25)
[2019-03-25] MEDS ORDERED: Thrombin 5000 UNITS/5 ML VIAL ONE (09:44)
[2019-03-25] MEDS ORDERED: Ondansetron PF 4 MG/2 ML Vial ONE (10:05)
[2019-03-25] MEDS ORDERED: Ketorolac Tromethamine 30 MG/ML VIAL ONE ×2 (10:05→11:06)
[2019-03-25] MEDS ORDERED: Dexamethasone 20 MG/5 ML VIAL ONE (10:05)
[2019-03-25] MEDS ORDERED: ePHEDrine/0.9% NaCl/PF SYRINGE 50 mg/10 ml ONE (10:05)
[2019-03-25] MEDS ORDERED: Lidocaine 1% PF 5 ML VIAL ONE (10:05)
[2019-03-25] MEDS ORDERED: PROPOFOL 200 MG/20 ML VIAL ONE (10:05)
[2019-03-25] MEDS ORDERED: Nitroglycerin 2% Ointment 1 INCH/1 GM Packet ONE (12:14)
[2019-03-25] MEDS ORDERED: Acetaminophen 500 MG TAB ONE (13:19)
[2019-03-25] MEDS ORDERED: Iopamidol 370 76% 50 ML VIAL FS ONE (13:29)
[2019-03-25] MEDS ORDERED: Iopamidol 370 76% 100 ML VIAL ONE (13:29)
[2019-03-25] MEDS ORDERED: Communication Order-Pharmacy FS SCH (13:30)
[2019-03-25] MEDS ORDERED: Bisacodyl 10 MG SUPP PR PRN (13:30)
[2019-03-25] MEDS ORDERED: TETANUS AND DIPHTHERIA TOX/PF 0.5 ML DISP.SYRIN IM SCH (13:30)
[2019-03-25] MEDS ORDERED: Acetaminophen 325 MG TAB PO PRN (13:30)
[2019-03-25] MEDS ORDERED: traMADol HCl 50 MG TAB PO PRN (13:30)
[2019-03-25] MEDS ORDERED: Ondansetron PF 4 MG/2 ML Vial IV PRN (13:30)
[2019-03-25] MEDS ORDERED: Milk Of Magnesia 30 ML UDCUP PO PRN (13:30)
--- NOTE | 2019-03-25 13:51 | RAD ---
PORTABLE CHEST: Date: 03/25/2019 HISTORY: Chest pain, shortness of breath. COMPARISON: 07/22/2016 exam. FINDINGS: Heart size is within normal limits considering technique. Mediastinal structures are unremarkable. Filomena ngs are clear of infiltrates. IMPRESSION: No active intrathoracic disease. POS: [facility]
[2019-03-25 14:00] LABS: #Lymphocytes 1.1 thou/uL (1.20-3.40); #Monocytes 0.1 thou/uL (0.11-0.59); %Basophils 0.1 % (0.0-1.0); %Eosinophils 0.4 % (0.0-10.0); %Monocytes 1.1 % (0.0-10.0); %Neutrophils 85.4 % (42.0-75.0); Hemoglobin 11.3 g/dL (12.0-16.0); Mean Corpuscular HGB CONC 31.1 g/dL (32.0-36.0); Mean Corpuscular Hemoglobin 26.3 pg (27.0-31.0); Mean Corpuscular Volume 84.6 fL (78.0-98.0); Mean Platelet Volume 8.9 fL (7.4-10.4); Platelet Count 233 thou/uL (130-400); RBC Distribution Width 13.1 % (11.5-14.5); White Blood Cell (WBC) Count 8.2 thou/uL (4.8-10.8)
--- NOTE | 2019-03-25 14:03 | OP ---
DATE OF PROCEDURE: 03/25/2019 PREOPERATIVE DIAGNOSES: Possible deep abscess with synovitis and early bone involvement, right middle finger proximal interphalangeal joint, especially proximal phalanx. FINDINGS: 1. No gross infection in the proximal phalanx. 2. No gross infection in the joint. 3. Marked synovitis with extensive adhesions to this underlying synovium, bone, and the skin. PROCEDURES PERFORMED: 1. Extensor tenolysis, right middle finger. 2. Right middle finger arthrotomy with synovectomy. SPECIMENS SENT: 1. Joint fluid culture. 2. Synovium grossly for culture. 3. Bone sample juxta-articular, proximal phalanx. TOURNIQUET TIME: 21 minutes. ESTIMATED BLOOD LOSS: 10 mL. FINDINGS: Again, tenosynovitis with thick tenosynovium, joint capsule, and extensor adhesion. DESCRIPTION OF PROCEDURE: After successful general endotracheal anesthesia, the limb was prepped and draped. The patient then had 10 mL of 0.5% Marcaine injected in the metacarpophalangeal joint block level. We used the previous incision, which was a radial dorsal incision, avoiding the most dorsal skin, extended it 15 mm proximal and 1 cm distal. We then removed the suture holding the healed longitudinal approach from the previous surgery and this was Prolene and removed. There was no gross infection in the subcutaneous tissue on the dorsal aspect of extensor mechanism, but there was marked adhesion to the skin and we released this as first part of the tenolysis. Then, we extended the incision in the extensor mechanism, preserving central slip, and elevated the joint and saw the capsule. There was some serous fluid, which we cultured. There was no gross infection. We then in the joint capsule saw marked tenosynovial edema. We did a formal tenosynovectomy including capsulotomy with some capsulectomy as well. Then, we visualized the entire joint. There was no further synovitis. We then juxta-articular on the radial side took a sample of bone with a curette, and then sent this to the lab for pathology for evaluation for Gram stain now and cultures later. We then irrigated with 3 L of normal saline using bulb syringe pressure with antibiotics inside. Deflated the tourniquet and we waited 40 minutes for successive Gram stains. They all showed no organisms and no white blood cells, only a few red blood cells in the bone sample. We then had excellent hemostasis, gave her additional 10 mL of 0.5% Marcaine, then we ran using a running 5-0 Prolene to close the extensor longitudinal defect, which when closed still had passive 110-degree flexion of the PIP joint and then we closed the skin with interrupted 4-0 nylon, where we then had 100 degrees of flexion passively. No tension. The digit was pink and left the operating room with a bulky dressing including bacitracin, Adaptic, 4x4s, Kerlix, and a small [place] with no evidence of anesthetic or operative complication. Job ID: [id number]
[2019-03-25 14:20] LABS: ALT (SGPT) 13 U/L (8-55); AST (SGOT) 15 U/L (5-34); Albumin 4.2 g/dL (3.5-5.0); Alkaline Phosphatase 91 U/L (40-110); Anion Gap 13 mmol/L (10-20); BUN (Urea Nitrogen) 15 mg/dL (9.8-20.1); Bilirubin, Total 0.3 mg/dL (0.2-1.2); Calc. Creatinine Clearance 126 mL/min (70-130); Calcium 8.8 mg/dL (7.8-10.44); Carbon Dioxide 25 mmol/L (22-29); Chloride 107 mmol/L (98-107); Estimated GFR-MDRD 78; Globulin 2.2 g/dL (2.4-3.5); Glucose 133 mg/dL (70-105); Potassium 4.1 mmol/L (3.5-5.1); Protein, Total 6.4 g/dL (6.0-8.3); Sodium 141 mmol/L (136-145)
[2019-03-25 14:28] LABS: INR-International Normal Ratio 1.1; PTT 25.5 SEC (22.9-36.1)
[2019-03-25] MEDS ORDERED: Iopamidol-370 76% 500 ML 1 ML ONE (14:30)
[2019-03-25 15:00] LABS: Base Excess (BEa) -0.1 mEq/L (-2.0 to +3.0); CO2 Tension 42.9 mmHg (35.0-45.0); Calcium, Ionized 1.13 mmol/L (1.12-1.30); Carboxyhemoglobin (COHb) 0.8 gm% (0.0-3.0); Hemoglobin (Hb) 11.3 g/dL (12.0-16.0); O2 Tension (PaO2) 82.9 mmHg (80.0-100.0); Potassium - ABG Lab 4.14 mmol/L (3.70-5.30); pH, Arterial 7.38 (7.35-7.45)
[2019-03-25 15:03] LABS: ALV-art Gradient 63.115 (0-20); Puncture Site LR
--- NOTE | 2019-03-25 15:42 | CT ---
CT ANGIO OF CHEST PERFORMED WITH INTRAVENOUS CONTRAST ENHANCEMENT WITH 3D RECONSTRUCTIONS: HISTORY: The patient complained of shortness of breath status post surgery. COMPARISON: A 11/24/2017 study. FINDINGS: Some subsegmental atelectatic changes in both lung bases. No confluent infiltrative process. Small mediastinal lymph nodes are seen, nonspecific. There is also a hiatal hernia noted and postop changes of the stomach. The thoracic aorta is normal in caliber. There is fairly good pulmonary artery opacification and no CT evidence for pulmonary embolus. The vi sualized liver parenchyma shows no focal findings. IMPRESSION: No CT evidence for pulmonary embolus. POS: [facility]
[2019-03-25] MEDS ORDERED: Heparin (Artline) 1,000 ML ONE (15:52)
[2019-03-25] MEDS ORDERED: Lidocaine 1% (PF) 30 ML VIAL ONE (15:52)
[2019-03-25] MEDS ORDERED: Heparin 10,000 UNITS/1 ML VIAL ONE (16:11)
[2019-03-25] MEDS ORDERED: Fentanyl 100 MCG/2 ML VIAL ONE (16:11)
[2019-03-25] MEDS ORDERED: Protamine Sulfate 50 MG/5 ML VIAL ONE (16:44)
[2019-03-25] MEDS ORDERED: Mag-Al 1200 mg/1200 mg/30 ML UDCUP ONE (16:49)
[2019-03-25] MEDS ORDERED: Sodium Chloride 0.9% 200 ML IV PRN (16:57)
[2019-03-25] MEDS ORDERED: Acetaminophen/Codeine 30-300mg Tablet PO PRN ×2 (16:57)
[2019-03-25] MEDS ORDERED: Sodium Chloride 0.9% 1,000 ML IV SCH (17:00)
[2019-03-25 17:36] VITALS: BMI 42.3
[2019-03-25] MEDS ORDERED: Ondansetron ODT 4 MG TAB PO PRN (18:43)
[2019-03-25] MEDS ORDERED: Morphine 2 MG/ML SYRINGE SLOW IVP PRN (18:50)
--- NOTE | 2019-03-25 18:58 | PDOC.HHP ---
Hospitalist HPI - History of Present Illness dyspnea / chest pain History of Present Illness: Case of an 54y/o female with pmhx of htn, hypothyroidism and afib s/pablation who comes to hospital due to dyspnea and chest pain. patient refers she was on her usual state of health until today when she came for an opd I/D of her R hand. patient refers she was put to sleep for procedure and when she woke up she started to have severe restrosternal chest pain 8/10 of crushing quality that radiated to her back with associated dyspnea. patient was evaluated with ekg, troponins and cta. ekg was w/o dm acute st changes troponin was negative and cta did not show any dissection or PE. cardiologst dr hernandez was consulted and patient had a LHC today which had no significant disease. due to continue dyspnea and chest pain hospitalists were consulted fir further evaluation and management. apart from presenting symptoms pt denies any palpitatios diaphoresis n/v fever or chills Hospitalist ROS - Review of Systems All other systems reviewed; all pertinent +/- noted in HPI/Subj - Medication Medications: Active Medications Generic Name Dose Route Start Last Admin Trade Name Freq PRN Reason Stop Dose Admin Acetaminophen/Codeine Phosphate 2 tab 03/25/19 16:57 03/25/19 17:48 Tylenol #3 PO 2 tab Q4H PRN Administration Moderate Pain (4-6) Albuterol/Ipratropium 3 ml 03/25/19 19:00 03/25/19 15:01 Duoneb NEB 3 ml [id number] MASOOD Administration Sodium Chloride 1,000 mls @ 125 mls/hr 03/25/19 17:00 03/25/19 17:44 Normal Saline 0.9% IV 03/25/19 23:00 1,000 mls .Q8H MASOOD Administration Hospitalist History - Past Medical History Cardiac: reports: AFIB, HTN Endocrine: reports: Hypothyroidism - Exam General Appearance: awake alert Eye: PERRL, anicteric sclera ENT: normocephalic atraumatic, no oropharyngeal lesions, moist mucosa Neck: supple, symmetric, no JVD, no thyromegaly Heart: RRR, no murmur, no gallops, no rubs, normal peripheral pulses Heart - other findings: chest pain is reproducible at palpation Respiratory: CTAB, no wheezes, no ronchi, normal chest expansion, no tachypnea Gastrointestinal: soft, non-tender, non-distended, normal bowel sounds, no palpable masses Extremities: no cyanosis, no clubbing, no edema Skin: normal turgor, no lesions Neurological: cranial nerve grossly intact, normal sensation to touch Musculoskeletal: normal tone, normal strength Psychiatric: normal affect, normal behavior, A&O x 3 Hospitalist Results - Labs Result Diagrams: 03/25/19 12:35 03/25/19 12:35 Lab results: WBC 8.2 thou/uL (4.8-10.8) 03/25/19 12:35 Hgb 11.3 g/dL (12.0-16.0) L 03/25/19 12:35 Hct 36.4 % (36.0-47.0) 03/25/19 12:35 MCV 84.6 fL (78.0-98.0) 03/25/19 12:35 Plt Count 233 thou/uL (130-400) 03/25/19 12:35 Neutrophils % 85.4 % (42.0-75.0) H 03/25/19 12:35 ABG pH 7.38 (7.35-7.45) 03/25/19 14:47 ABG pCO2 42.9 mmHg (35.0-45.0) 03/25/19 14:47 ABG pO2 82.9 mmHg (80.0-100.0) 03/25/19 14:47 Sodium 141 mmol/L (136-145) 03/25/19 12:35 Potassium 4.1 mmol/L (3.5-5.1) 03/25/19 12:35 Chloride 107 mmol/L (98-107) 03/25/19 12:35 Carbon Dioxide 25 mmol/L (22-29) 03/25/19 12:35 BUN 15 mg/dL (9.8-20.1) 03/25/19 12:35 Creatinine 0.77 mg/dL (0.6-1.1) 03/25/19 12:35 Glucose 133 mg/dL (70-105) H 03/25/19 12:35 Calcium 8.8 mg/dL (7.8-10.44) 03/25/19 12:35 Total Bilirubin 0.3 mg/dL (0.2-1.2) 03/25/19 12:35 AST 15 U/L (5-34) 03/25/19 12:35 ALT 13 U/L (8-55) 03/25/19 12:35 Alkaline Phosphatase 91 U/L (40-110) 03/25/19 12:35 Troponin I Less than 0.010 ng/mL (< 0.028) 03/25/19 12:35 Serum Total Protein 6.4 g/dL (6.0-8.3) 03/25/19 12:35 Albumin 4.2 g/dL (3.5-5.0) 03/25/19 12:35 - EKG Interpretation EKG: no acute st changes - Radiology Interpretation Chest x-ray Status: image reviewed by me Additional Comment: no infiltrates effusions or consolidations CT scan - chest Status: image reviewed by me (no pe,no dissection, atelectasia noted on b/l lung bases) Hospitalist H&P A/P - Problem (1) Chest pain of uncertain etiology Code(s): R07.89 - OTHER CHEST PAIN Status: Acute (2) Atelectasis of both lungs Code(s): J98.11 - ATELECTASIS Status: Acute (3) Hypertension Code(s): I10 - ESSENTIAL (PRIMARY) HYPERTENSION Status: Acute - Plan Plan: 54y/o female with the stated pmhx who will be admitted to [facility] for ops[facility] due to chest pain and dyspnea. at this momet cardiac etiology is basically r/o, pt is s/p [facility] but due to complains of continued chest pain with dyspnea and atelesaia on cta, patient will be observed overnight -pain management -ivfs to prevent bhupinder -f/u with surgeon for hand issues -dual nebq 6hrs -incentive spirometry -continue home meds for chronic conditions -dvt prophylaxis -monitor [facility] site -monitor 02 sat -likely discharge in am
--- NOTE | 2019-03-25 20:49 | CON ---
DATE OF CONSULTATION: HISTORY OF PRESENT ILLNESS: Elizabeth Novak is a 54-year-old white female who has seen Dr. Monroe in the past. She has had a negative treadmill in February 2015. She did have atrial fibrillation and underwent ablation by Dr. Cottrell in November 2017. This was followed by pericardial chest pain consistent with pericarditis, treated with colchicine. She states she has not had any further chest discomfort after that until now. Today, she underwent surgery of abscess of a right finger. She underwent general anesthesia with this. When she awoke from anesthesia, she was complaining of a dull ache in the center part of her chest with some sharp components. The pain is mildly pleuritic in nature and has not improved over the course of 2-3 hours. EKGs that show normal sinus rhythm with downsloping ST-segment V2 through V3, which is worsened somewhat on second EKG. Some of her EKGs in the past have shown inverted T-wave in V3. PAST MEDICAL HISTORY: Hyperlipidemia, though she states she has never been on cholesterol medicines (LDL was 120 in November 2018), hypertension, obesity, hypothyroidism. PAST SURGICAL HISTORY: x2, and radiofrequency ablation of atrial fibrillation. MEDICATIONS: 1. Aspirin 81 daily. 2. Vitamin D3. 3. Losartan 50 daily. 4. Multivitamin one daily. 5. Protonix 40 q.a.m. (she did take the Protonix this morning). 6. [place] Thyroid 120 mg q.a.m. ALLERGIES: PENICILLIN, SULFA, CRAB, AND CRAWFISH. SHE DID RECEIVE A 54 ML CONTRAST TODAY WITH CT ANGIOGRAM OF THE CHEST WITHOUT REACTION. SOCIAL HISTORY: She does not smoke or drink. PHYSICAL EXAMINATION: VITAL SIGNS: Blood pressure 140/70, pulse of 80. HEENT: PERRL. NECK: Supple. CHEST: Clear. CARDIAC: S1 and S2 normal without any S3, S4, or murmurs. No rub was heard. Carotid upstrokes normal without bruits. ABDOMEN: Obese, normal bowel sounds. No tenderness. EXTREMITIES: Revealed no clubbing, cyanosis, or edema. NEUROLOGICAL: Grossly intact. SKIN: Warm and dry. LABORATORY DATA: EKG findings as noted above. Hemoglobin 11.3, hematocrit 36.4 , white count 8200, platelets 233,000. INR 1.1. PH 7.38, pCO2 of 42.9, pO2 of 82.9. Sodium 141, potassium 4.1, chloride 107, carbon dioxide 25, BUN 15, creatinine 0.77, glucose 133. First troponin I is unremarkable. CT angiogram of the chest was performed and reportedly, there was no evidence of pulmonary embolism, although final interpretation is not on the computer. IMPRESSION: 1. Prolonged chest discomfort with downsloping ST segments in V2 and V3. 2. History of atrial fibrillation ablation complicated by pericarditis afterwards. 3. Hypertension. 4. Hypercholesterolemia, untreated. 5. Hypothyroidism. 6. Obesity. 7. Status post drainage of a right finger. RECOMMENDATIONS: The situation was discussed with the patient and her daughter. With continued chest discomfort and mild EKG changes in someone with multiple cardiac risk factors, I would recommend that she undergo cardiac catheterization. Risks of this were discussed including , myocardial infarction, dye reaction, vascular injury, CVA, transfusion, limb loss, renal loss, etc. Also risk of intervention with PTCA and stent placement was discussed including , myocardial infarction, emergent CABG, restenosis, stent thrombosis, vessel perforation, etc. She understands and agrees to proceed. She has never had any gastrointestinal bleeding or stroke. She does not have any further upcoming surgical procedures and is recommended that a drug-eluting stent be placed if needed. This has been discussed with Dr. Santos and from the surgical procedure, he feels that she could be anticoagulated with heparin if need be during catheterization and possible stent implantation. Job ID: [id number] MTDD
[2019-03-25] MEDS ORDERED: Aspirin 81 mg Enteric Coated Tablet PO SCH (21:00)
[2019-03-25] MEDS: HYDROcodone/Acetaminophen 5/325 mg Tablet PO PRN (21:28)
--- NOTE | 2019-03-25 22:47 | HP ---
CHIEF COMPLAINT: Shortness of breath with pain running from anterior infrasternal to posterior infrasternal associated with deep breath. HISTORY OF PRESENT ILLNESS: The patient has had today a 35-minute tourniquet time operative procedure, where she had a synovectomy performed at the interphalangeal joint of one of her finger. After approximately 1 hour of procedure, she reported to the Day Stay/step-down unit of this hospital where she was prepared for discharge. She had shortness of breath related sharp pain running from anterior to posterior in the lower thoracic, upper gastric area. At this time, it was not relieved with medications, so we began a workup. Her vital signs remained stable except for some slight desaturation. She then immediately began the following workup and evaluation. 1. She saw Dr. Patterson who managed her and at that point, she had cardiac enzymes begun with the first level. Troponin was negative. 2. Dr. Santos initiated pulmonary type workup where she had slight desaturation from 99 to 96 on 2 L of room air via nasal cannula. She did not have any chest wall tenderness, upper epigastric tenderness, all exam was negative and she did not have any lumbar tenderness, but we localized the center of this dyspneic pain to be approximately T12-L1 to approximately T6-T7. No spasm. Plain chest x-ray shows some evidence of atelectasis but it was on the AP view, but this was confirmed, where she had a CTA of her chest that showed no evidence of pulmonary embolism only atelectasis in lower rose. 3. The patient is not having epigastric area pain. Her laboratory work evaluation by approximately 1530 on date of admission revealed that she had normal white blood cell count of 8200, hemoglobin 11.3, which is almost the same as the morning of admission. Her PT and PTT were 14 and 25. INR 1.1. Her chemistry panel showed no abnormalities to include a creatinine of 0.7. Minimal elevation of her glucose to 133. ASSESSMENT AND RECOMMENDATION: The patient is having some type of episode, and at this point, etiology is undetermined. We will do the following. 1. We will give respiratory treatment, which is being done as I gave this dictation. 2. We will consider aorta with runoff in case she has a more distal problem such as dissection or aneurysm that may be starting to repair the leak. 3. Consult Cardiology. 4. She will be admitted on oxygen to the telemetry floor for further evaluation and monitoring. At this point, vital signs remained stable. Respiratory rate is still 22 at 1530 hours on date of admission. Job ID: [id number]
[2019-03-26] MEDS: HYDROcodone/Acetaminophen 5/325 mg Tablet PO PRN ×4 (04:28→17:20)
[2019-03-26 04:57] LABS: #Lymphocytes 1.6 thou/uL (1.20-3.40); #Monocytes 0.4 thou/uL (0.11-0.59); #Neutrophils 7.3 thou/uL (1.40-6.50); %Basophils 0.1 % (0.0-1.0); %Eosinophils 0.1 % (0.0-10.0); %Monocytes 4.5 % (0.0-10.0); %Neutrophils 78.2 % (42.0-75.0); Hemoglobin 9.3 g/dL (12.0-16.0); Mean Corpuscular Hemoglobin 26.9 pg (27.0-31.0); Mean Corpuscular Volume 84.1 fL (78.0-98.0); Mean Platelet Volume 8.6 fL (7.4-10.4); Platelet Count 220 thou/uL (130-400); RBC Distribution Width 13.2 % (11.5-14.5); Red Blood Cell (RBC) Count 3.47 mill/uL (4.20-5.40); White Blood Cell (WBC) Count 9.3 thou/uL (4.8-10.8)
[2019-03-26 05:22] LABS: Anion Gap 12 mmol/L (10-20); BUN (Urea Nitrogen) 13 mg/dL (9.8-20.1); Calc. Creatinine Clearance 164 mL/min (70-130); Calcium 8.3 mg/dL (7.8-10.44); Carbon Dioxide 25 mmol/L (22-29); Chloride 108 mmol/L (98-107); Estimated GFR-MDRD Greater than 90; Glucose 103 mg/dL (70-105); Potassium 4.1 mmol/L (3.5-5.1); Sodium 141 mmol/L (136-145)
[2019-03-26] MEDS ORDERED: Metoclopramide HCl 10 MG/2 ML VIAL IVP SCH (08:45)
[2019-03-26] MEDS ORDERED: Pantoprazole 40 MG VIAL IVP SCH (08:45)
[2019-03-26] MEDS ORDERED: Thyroid 60 MG TAB PO SCH (09:00)
[2019-03-26] MEDS ORDERED: Enoxaparin Sodium 40 MG/0.4 ML SYRINGE SC SCH (09:00)
[2019-03-26] MEDS ORDERED: Aspirin 81 mg Enteric Coated Tablet PO SCH (09:00)
[2019-03-26] MEDS ORDERED: Losartan 25 MG TAB PO SCH (09:00)
--- NOTE | 2019-03-26 09:20 | PDOC.HOSPP ---
- Subjective Encounter Date: 03/26/19 Encounter Time: 11:30 Subjective: Patient with recurrent episode of left lower anterior chest pain with SOB this AM, resolved with Reglan and Protonix. Dr. Santos ordering GI consult. - Objective Vital Signs & Weight: Vital Signs (12 hours) Temp Pulse Resp BP BP Pulse Ox 03/26/19 08:51 98.0 F 87 16 137/60 97 03/26/19 07:16 80 12 03/26/19 04:00 97.7 F 83 16 108/54 L 96 03/26/19 00:27 89 14 97 03/25/19 23:00 97.8 F 88 16 110/53 L 93 L Weight Weight 238 lb 8 oz I&O: 03/25/19 03/26/19 03/27/19 06:59 06:59 06:59 Intake Total 855 Output Total 950 Balance -95 Result Diagrams: 03/26/19 04:18 03/26/19 04:18 Hospitalist ROS - Review of Systems Constitutional: denies: fever, chills Respiratory: reports: shortness of breath. denies: cough Cardiovascular: reports: chest pain. denies: palpitations, orthopnea Gastrointestinal: denies: nausea, vomiting, abdominal pain, diarrhea, constipation - Medication Medications: Active Medications Generic Name Dose Route Start Last Admin Trade Name Freq PRN Reason Stop Dose Admin Acetaminophen/Codeine Phosphate 2 tab 03/25/19 16:57 03/25/19 17:48 Tylenol #3 PO 2 tab Q4H PRN Administration Moderate Pain (4-6) Hydrocodone Bitart/Acetaminophen 1 tab 03/25/19 13:30 03/26/19 09:00 [place] 5/325 PO 1 tab Q4H PRN Administration Moderate Pain (4-6) Albuterol/Ipratropium 3 ml 03/25/19 19:00 03/26/19 07:16 Duoneb NEB 3 ml [id number] MASOOD Administration Aspirin 81 mg 03/26/19 09:00 03/26/19 08:58 Ecotrin PO Not Given DAILY MASOOD Enoxaparin Sodium 40 mg 03/26/19 09:00 03/26/19 08:58 Lovenox SC Not Given 0900 MASOOD Losartan Potassium 50 mg 03/26/19 09:00 03/26/19 08:57 Cozaar PO Not Given DAILY MASOOD Metoclopramide HCl 10 mg 03/26/19 08:45 03/26/19 09:01 Reglan IVP 03/26/19 10:00 10 mg NOW MASOOD Administration Morphine Sulfate 2 mg 03/25/19 18:50 03/25/19 19:36 Morphine SLOW IVP 2 mg Q4H PRN Administration Breakthrough Pain Pantoprazole Sodium 40 mg 03/26/19 09:00 03/26/19 09:00 Protonix PO Not Given QAM MASOOD Pantoprazole Sodium 40 mg 03/26/19 08:45 03/26/19 09:01 Protonix IVP 03/26/19 10:00 40 mg NOW MASOOD Administration - Exam General Appearance: NAD, awake alert Neck: supple Heart: RRR, no murmur, no gallops, no rubs Respiratory: CTAB, no wheezes, no rales, no ronchi Gastrointestinal: soft, non-distended, normal bowel sounds, no palpable masses, no hepatomegaly, no splenomegaly, no guarding Gastrointestinal - other findings: mild TTP VY Extremities: no cyanosis, no clubbing, no edema Psychiatric: normal affect, normal behavior, A&O x 3 Hosp A/P (1) Chest pain of uncertain etiology Code(s): R07.89 - OTHER CHEST PAIN Status: Acute (2) Atelectasis of both lungs Code(s): J98.11 - ATELECTASIS Status: Acute (3) HLD (hyperlipidemia) Code(s): E78.5 - HYPERLIPIDEMIA, UNSPECIFIED Status: Chronic (4) Hypertension Code(s): I10 - ESSENTIAL (PRIMARY) HYPERTENSION Status: Chronic (5) Paroxysmal atrial fibrillation Code(s): I48.0 - PAROXYSMAL ATRIAL FIBRILLATION Status: Chronic - Plan Cardiac cath negative, CTA neg for PE/dissection, Cleared by cardiology. Awaiting GI consult. Stable for discharge home from out standpoint.
[2019-03-26 13:22] LABS: ALT (SGPT) 14 U/L (8-55); AST (SGOT) 15 U/L (5-34); Albumin 3.7 g/dL (3.5-5.0); Alkaline Phosphatase 72 U/L (40-110); Bilirubin, Direct 0.1 mg/dL (0.1-0.3); Bilirubin, Total 0.3 mg/dL (0.2-1.2); Iron 23 ug/dL (50-170); Iron Binding Capacity, Total 321 mcg/dL (265-497); Protein, Total 5.9 g/dL (6.0-8.3)
[2019-03-26 13:53] LABS: Ferritin 13.89 ng/mL (10-291)
--- NOTE | 2019-03-26 14:20 | CON ---
DATE OF CONSULTATION: 03/26/2019 CHIEF COMPLAINT: Substernal chest pain. HISTORY OF PRESENT ILLNESS: Ms. Novak is a 54-year-old woman, who had surgery on her finger yesterday. She woke up from anesthesia after the procedure, she had a stabbing pain in the lower substernal to upper epigastric region that radiated to her back between her shoulder blades. She had some nausea with that, but no vomiting. She also has some initial shortness of breath that she was waking up from anesthesia. No diarrhea, constipation, or blood in the stool. She has had some progressively worsening acid reflux over the last couple of months. She has been on pantoprazole 40 mg daily for years for acid reflux. She states Dr. Tipton did an upper endoscopy for her a couple of years ago, which the patient reports is negative. She had her screening colonoscopy at the same time, and was advised to repeat in 10 years. Over the last couple of months, however, she has had heartburn and pyrosis at night 4 to 7 nights per week. Due to the chest pain after the procedure yesterday, she had a CT angiogram that was negative for pulmonary embolism. She then underwent cardiac catheterization, that showed clear coronary vessels. She was admitted for further workup of the chest pain. PAST MEDICAL HISTORY: 1. Hypertension. 2. Hypothyroidism. 3. Atrial fibrillation status post ablation. 4. Gastroesophageal reflux disease. PAST SURGICAL HISTORY: 1. She had surgery on her finger yesterday. 2. . FAMILY HISTORY: Negative for GI malignancy in any first-degree relatives. She had a grandparent with colon cancer. SOCIAL HISTORY: No alcohol, tobacco, or drugs. ALLERGIES: PENICILLIN, SULFA, CRAB, AND CRAWFISH. MEDICATIONS: Outpatient medications include: 1. [place] Thyroid. 2. Protonix 40 mg daily. 3. Multiple vitamin. 4. Losartan. 5. Vitamin D. 6. Aspirin. Here in the hospital: 1. She did receive IV pantoprazole this morning. 2. She has received morphine for the pain. REVIEW OF SYSTEMS: Negative x10 systems reviewed except as stated in history of present illness. PHYSICAL EXAMINATION: VITAL SIGNS: Temperature 98.0, pulse 87, blood pressure 137/60. GENERAL: She is in no acute distress. Alert and oriented x3. HEENT: Eyes have no scleral icterus. Oropharynx is clear without lesions. No cervical or supraclavicular lymphadenopathy. LUNGS: Clear to auscultation bilaterally. HEART: Regular rate and rhythm without murmur. ABDOMEN: Soft. She has mild tenderness in the right upper quadrant and epigastric region without guarding. Bowel sounds are present. EXTREMITIES: No lower extremity edema. LABORATORY DATA: Creatinine 0.67. She had LFTs yesterday afternoon with a bilirubin of 0.3, AST 15, ALT 13, alkaline phosphatase 91, albumin 4.2. INR 1.1. White blood cell count 9.3, hemoglobin 9.3, MCV of 84, and platelets 220. IMPRESSION: 1. Substernal chest pain to epigastric pain that radiates through to her mid back between the shoulder blades. This pain started as she woke up from anesthesia. She has been having progressively worsening nocturnal reflux while supine lately, and I suspect the most likely cause of this substernal pain is reflux while she was lying flat for her surgery. Biliary etiology is also possible. I will recheck her liver tests. If they are increasing, then we will need to consider choledocholithiasis. Otherwise, I do recommend an ultrasound of the gallbladder and biliary tree. She would prefer to get this done as an outpatient and would rather go home today rather than waiting to get the ultrasound done as an inpatient. Her pain is improving. 2. Normocytic anemia. Her hemoglobin is 9.3 today. We will work this up further with iron studies and check a B12 and folate. This can also be followed up as an outpatient. The patient reports she had an esophagogastroduodenoscopy and colonoscopy by Dr. Tipton, which she thinks might have been done in 2018. RECOMMENDATIONS: 1. Increase the pantoprazole to 40 mg twice daily to be taken 30 minutes before breakfast and 30 minutes before supper for the next couple of weeks. Follow up in 2 weeks in GI Clinic with Dr. Tipton or one of our PAs. If her symptoms are persistent at that point, then upper endoscopy should be performed. If her symptoms are doing better at that time, then we can likely back the pantoprazole off to once daily taken 30 minutes before her evening meal. She was also advised to keep her stomach empty 3 hours before lying down at night and raise the head of the bed on a couple of small blocks. 2. I will add repeat liver tests to her blood draw from this morning. If they are elevated, then we will need to perform more immediate workup of her biliary tree. 3. I recommend ultrasound of the gallbladder and bile ducts. She prefers to get this done as an outpatient rather than waiting for n.p.o. status and inpatient ultrasound. She feels like her symptoms are doing better; however, they did flare up a bit after she ate breakfast this morning. 4. Check iron, B12, and folate for further evaluation of her anemia. 5. Anticipate discharge home today as long as her symptoms continue to improve and her liver tests are normal. I will send a prescription for pantoprazole 40 mg twice daily taken 30 minutes before breakfast and 30 minutes before supper. 6. Follow up in GI clinic in 2 weeks. Job ID: [id number]
[2019-03-26 15:36] VITALS: BP 131/66; TEMP 97.9
--- NOTE | 2019-03-27 00:40 | DIS ---
DATE OF ADMISSION: 03/25/2019 DATE OF DISCHARGE: 03/26/2019 PRIMARY CARE PHYSICIAN: Dr. Sawyer Barrera. REASON FOR ADMISSION: Dyspnea and chest pain after I and D of her right hand. DIAGNOSES AT DISCHARGE: 1. Chest pain, likely GI in origin. 2. Atelectasis of both lungs. 3. Gastroesophageal reflux disease. 4. Hyperlipidemia. 5. Hypertension. 6. Paroxysmal atrial fibrillation. 7. Synovitis and extensive adhesions of the proximal interphalangeal joint of the right middle finger. PROCEDURES: 1. Extensor tenolysis of the right middle finger and right middle finger arthrotomy with synovectomy. 2. CT scan of the chest with and without contrast showing no evidence for pulmonary embolism and normal aorta. There was some subsegmental atelectatic changes in both lung bases without any infiltrative process. 3. Cardiac catheterization showing normal coronary arteries. CONSULTATIONS: 1. Cardiology, Dr. Knapp. 2. Gastroenterology, Dr. Guzman. SUMMARY OF HOSPITAL COURSE: This is a 54-year-old white female, who came in for an outpatient procedure on her right middle finger by Dr. Santos. When she woke up from the procedure, she started to have severe retrosternal chest pain, 8/10, crushing in quality that radiated to her back with associated dyspnea. She had an EKG, troponins, and CTA as above. EKG did show some possible ST-segment depressions, negative troponin. Dr. Knapp was consulted and given her recurrent persistent chest pain symptoms, he did take her back for cardiac catheterization, which was normal. The patient did have improvement in her symptoms after some Reglan and Protonix. She does have a history of gastroesophageal reflux disease with previous gastric sleeve. GI was consulted. They recommended increasing her Protonix to twice a day for at least the next 2 weeks and then to follow up in our clinic. They are also planning on doing an outpatient ultrasound of her gallbladder. The patient was feeling much better the day of discharge, having just one episode of chest pain after eating breakfast that has since resolved. She has been cleared for discharge by Cardiology, by Gastroenterology, and by Dr. Santos. She is being discharged home. DISCHARGE MANAGEMENT: Discharged home. FOLLOWUP: Follow up with Dr. Santos as scheduled next week with Dr. Tipton in GI clinic in 2 weeks, and with Dr. Barrera as needed. ACTIVITY: As tolerated. DIET: Regular diet. MEDICATIONS: 1. Protonix 40 mg twice a day, 60 tablets dispensed. 2. Aspirin 81 mg daily. 3. Losartan 50 mg daily. 4. [place] Thyroid 120 mg daily. 5. Vitamin D3 of 1000 units daily. 6. Multivitamin daily. Job ID: [id number]
--- NOTE | 2019-03-28 00:14 | EKG ---
Test Reason : Blood Pressure : / mmHG Vent. Rate : 078 BPM Atrial Rate : 078 BPM P-R Int : 154 ms QRS Dur : 084 ms QT Int : 390 ms P-R-T Axes : 030 009 -06 degrees QTc Int : 444 ms Normal sinus rhythm Abnormal ECG When compared with ECG of 29-NOV-2018 19:18, ST now depressed in Anterior leads T wave inversion now evident in Anterior leads QT has lengthened Confirmed by Reid GURROLA ([id number]) on 03/28/2019 12:14:29 AM Referred By: GARLAND Confirmed By:Reid GURROLA
--- NOTE | 2019-03-29 21:04 | EKG ---
Test Reason : Blood Pressure : / mmHG Vent. Rate : 087 BPM Atrial Rate : 087 BPM P-R Int : 156 ms QRS Dur : 084 ms QT Int : 374 ms P-R-T Axes : 035 008 -07 degrees QTc Int : 450 ms Normal sinus rhythm Nonspecific ST and T wave abnormality Abnormal ECG When compared with ECG of 25-MAR-2019 12:17, No significant change was found Confirmed by Reid GURROLA ([id number]) on 03/29/2019 9:04:35 PM Referred By: ELISEO HAQUE Confirmed By:Reid GURROLA
[2019-03-30 08:12] LABS: Fungus Stain Final report (.)
[2019-03-30 08:12] LABS: Fungus Stain Final report (.)
[2019-03-30 08:12] LABS: Fungus Stain Final report (.)
== END 2019-03-26 19:55 | disposition home or self-care (01) ==
LOC: SDC 07:00 → 2NO 13:42 → INTOOBSV 13:42
PROVIDERS: ADMIT Orthopaedic Surgery Hand Surgery; ATTEND Orthopaedic Surgery Hand Surgery
PROC: 0RNW0ZZ Release Right Finger Phalangeal Joint, Open Approach (ICD-10-PCS; principal; 2019-03-25)
PROC: 0RBW0ZZ Excision of Right Finger Phalangeal Joint, Open Approach (ICD-10-PCS; 2019-03-25)
PROC: 4A023N7 Measurement of Cardiac Sampling and Pressure, Left Heart, Percutaneous Approach (ICD-10-PCS; 2019-03-25)
PROC: B2111ZZ Fluoroscopy of Multiple Coronary Arteries using Low Osmolar Contrast (ICD-10-PCS; 2019-03-25)
DX: M65.841 Other synovitis and tenosynovitis, right hand (principal); J98.11 Atelectasis; R07.2 Precordial pain; R06.02 Shortness of breath; R10.13 Epigastric pain; K21.9 Gastro-esophageal reflux disease without esophagitis; E78.5 Hyperlipidemia, unspecified; I10 Essential (primary) hypertension; I48.0 Paroxysmal atrial fibrillation; E03.9 Hypothyroidism, unspecified; E78.00 Pure hypercholesterolemia, unspecified; D64.9 Anemia, unspecified; E66.9 Obesity, unspecified; Z68.41 Body mass index [BMI] 40.0-44.9, adult; Z79.82 Long term (current) use of aspirin; Z79.899 Other long term (current) drug therapy; Z88.0 Allergy status to penicillin; Z88.2 Allergy status to sulfonamides; Z88.8 Allergy status to other drugs, medicaments and biological substances; Z91.013 Allergy to seafood; Z98.84 Bariatric surgery status
CPT/HCPCS: 36415; 71045; 71275; 80048; 80053; 80076; 82607; 82728; 82746; 82805; 83540; 83550; 84484; 85025; 85347; 87070; 87102; 87205; 87206; 93005; 93010; 93458; 94640; 94760; 94799; 96374; 96375; 99152; C1769; C9113; G0378; J1100; J1170; J1644; J1885; J2001; J2250; J2270; J2405; J2704; J2720; J2765; J3010; J3370; J3490; J7620; Q9967; S0020

== ENCOUNTER 2019-03-27 09:04 | Emergency (ER) | payer BC ==
[2019-03-27 09:30] LABS: #Basophils 0.1 thou/uL (0.0-0.2); #Eosinphils 0.1 thou/uL (0.0-0.7); #Lymphocytes 1.3 thou/uL (1.20-3.40); #Monocytes 0.7 thou/uL (0.11-0.59); #Neutrophils 9.9 thou/uL (1.40-6.50); %Basophils 0.4 % (0.0-1.0); %Eosinophils 1.2 % (0.0-10.0); %Lymphocytes 10.7 % (21.0-51.0); %Monocytes 5.8 % (0.0-10.0); %Neutrophils 81.8 % (42.0-75.0); Hemoglobin 10.1 g/dL (12.0-16.0); Mean Corpuscular HGB CONC 31.7 g/dL (32.0-36.0); Mean Corpuscular Hemoglobin 26.6 pg (27.0-31.0); Mean Corpuscular Volume 83.8 fL (78.0-98.0); Mean Platelet Volume 8.2 fL (7.4-10.4); Platelet Count 234 thou/uL (130-400); RBC Distribution Width 13.3 % (11.5-14.5); White Blood Cell (WBC) Count 12.1 thou/uL (4.8-10.8)
[2019-03-27] MEDS ORDERED: Morphine 4 MG/ML VIAL ONE (09:38)
[2019-03-27 09:48] LABS: ALT (SGPT) 17 U/L (8-55); AST (SGOT) 17 U/L (5-34); Albumin 3.9 g/dL (3.5-5.0); Alkaline Phosphatase 75 U/L (40-110); Anion Gap 12 mmol/L (10-20); BUN (Urea Nitrogen) 11 mg/dL (9.8-20.1); Bilirubin, Total 0.4 mg/dL (0.2-1.2); CK (CPK) 77 U/L (29-168); Calc. Creatinine Clearance 0 mL/min (70-130); Calcium 8.6 mg/dL (7.8-10.44); Carbon Dioxide 26 mmol/L (22-29); Chloride 105 mmol/L (98-107); Estimated GFR-MDRD 86; Globulin 2.3 g/dL (2.4-3.5); Glucose 104 mg/dL (70-105); Lipase 8 U/L (8-78); Magnesium 1.8 mg/dL (1.6-2.6); Potassium 4.3 mmol/L (3.5-5.1); Protein, Total 6.2 g/dL (6.0-8.3); Sodium 139 mmol/L (136-145)
--- NOTE | 2019-03-27 09:56 | RAD ---
RADIOGRAPH CHEST 1 VIEW: DATE: 03/27/2019 TIME: 9:28 AM HISTORY: 54-year-old female with dyspnea and chest pain COMPARISON: 03/25/2019 FINDINGS: Prominent interstitial markings, apparently new or worse than on prior study. No consolidation. Later al costophrenic angles are sharp. No pneumothorax. Probably no cardiomegaly. IMPRESSION: Prominent interstitial markings: Questionable finding of fluid in interlobular septa. No consolidation.
[2019-03-27 10:10] LABS: CKMB 0.9 ng/mL (0-6.6)
--- NOTE | 2019-03-27 10:22 | CT ---
EXAM: CT angiogram of the chest including 3-D rendering: HISTORY: Chest pain shortness of breath COMPARISON: 03/25/2019 FINDINGS: There is adequate opacification of the pulmonary arteries. No evidence for aortic aneurysm or dissection. No convincing CT evidence for acute pulmonary embolism. Minimal dependent changes in the posterior lower lungs. Multiple small mediastinal nodes without evidence for adenopathy by size criteria. Bilateral pleural effusions, small on the right side and very small on the left side. Postop bariatric surgery with small hiatal hernia. IMPRESSION: No convincing CT evidence for acute pulmonary embolism. The pleural effusions and dependent pulmonary parenchymal changes are new when compared to the study from 2 days ago.
[2019-03-27 13:22] LABS: Bilirubin Negative (Negative); Blood, Urine Negative (Negative); Clarity Clear (Clear); Glucose, Urine (Dipstick) Normal (Negative); Leukocyte Negative Leu/uL (Negative); Nitrite Negative (Negative); Protein, Urine (Dipstick) Negative (Neg-Trace); Urobilinogen Normal mg/dL (Less than 2)
[2019-03-27] MEDS ORDERED: Iopamidol-370 76% 500 ML 1 ML ONE (15:14)
--- NOTE | 2019-03-28 05:39 | CON ---
DATE OF CONSULTATION: REASON FOR CONSULTATION: Chest pain, shortness of breath. HISTORY OF PRESENTING ILLNESS: The patient gives history of waking up early in the morning with shortness of breath. She sat in a recliner for some time to see if it would go away. This ended up her having chest pain, which was in the retrosternal area. Finally, she got relief from that. She has been having dry cough. No fever. She got discharged yesterday after having the 3rd surgery on her 3rd finger by Dr. Santos. Post procedure on Thursday, the patient had some shortness of breath and was told she has atelectasis. She also developed chest pain then and had a cardiac catheterization done, which did not reveal any flow-limiting disease. She finally went home yesterday evening. No complaints of palpitations or PND. PAST MEDICAL AND SURGICAL HISTORY: History of prior atrial fibrillation with ablation done 1-1/2 years ago and is in sinus rhythm since then, hypertension, right middle finger surgeries x3, hypothyroidism, GERD, gastric bypass, obesity, x3, right shoulder surgery, tonsillectomy. CURRENT MEDICATIONS: Takes; 1. Losartan 50 mg daily. 2. Aspirin 81 mg daily. 3. Protonix 40 mg daily. 4. [place] Thyroid 120 mg daily. ALLERGIES: SULFA, CRAB, CRAWFISH, PENICILLIN, SHELLFISH. PERSONAL HISTORY: Does not abuse alcohol or drugs. No history of smoking. FAMILY HISTORY: Both parents are living and are healthy as far as she knows. REVIEW OF SYSTEMS: CONSTITUTIONAL: Negative for weight loss or gain, ability to conduct usual activities. SKIN: Negative for rash, itching. EYES: Negative for double vision, pain. ENT/MOUTH: Negative for nose bleeding, neck stiffness, pain, tenderness. CARDIOVASCULAR: Negative for palpitations, dyspnea on exertion, orthopnea. RESPIRATORY: Negative for shortness of breath, wheezing, cough, hemoptysis, fever or night sweats. GASTROINTESTINAL: Negative for poor appetite, abdominal pain, heartburn, nausea, vomiting, constipation, or diarrhea. GENITOURINARY: Negative for urgency, frequency, dysuria, nocturia. MUSCULOSKELETAL: Negative for pain, swelling. NEUROLOGIC/PSYCHIATRIC: Negative for anxiety, depression. ALLERGY/IMMUNOLOGIC: Negative for skin rash, bleeding tendency. PHYSICAL EXAMINATION: GENERAL: The patient is a 54-year-old female who is currently not in any acute distress. VITAL SIGNS: Blood pressure 152/86, pulse 90 per minute, respiratory rate 16 per minute, temperature 100 degrees Fahrenheit, saturating 94% on room air. NECK: Supple. No elevated JVD. HEENT: Eyes; extraocular muscles intact. Pupils reacting to light. Oral cavity, mucous membranes are moist. No exudates or congestion. CARDIOVASCULAR SYSTEM: S1 and S2 heard. Regular rhythm. RESPIRATORY SYSTEM: Air entry 2+ bilateral. No rales or rhonchi. ABDOMEN: Soft. Bowel sounds heard. No tenderness, rigidity, or guarding. EXTREMITIES: Right hand; 2 fingers are in crepe bandage post surgery on Thursday. Lower extremities show no peripheral edema or calf tenderness. VASCULAR SYSTEM: Peripheral pulses 2+ bilateral. No ischemic ulcerations or gangrene. CENTRAL NERVOUS SYSTEM: No gross focal deficits noted. The patient is alert, awake, and oriented well. PSYCHIATRIC SYSTEM: The patient's mood is euthymic. No hallucinations or delusions. LABORATORY DATA: White count of 12, H and H of 10 and 31, platelet count 234 with 81% neutrophils, MCV 83. Electrolytes are stable. BUN 11, creatinine 0.7, serum glucose 104. Liver enzymes within normal limits. Magnesium 1.8, albumin is 3.9. BNP 228. TSH 1.1. UA is negative for any infection. CT angio chest done shows no evidence of PE. There is tiny pleural effusion seen. EKG done shows normal sinus rhythm at 86 beats per minute. CLINICAL IMPRESSION AND PLAN: The patient will be shortly discharged from ER. She has had 2 CT angios done for the chest, one on 03/25/2019 and one today. She has had a cardiac catheterization done on 03/25/[address] Knapp, which showed no flow-limiting disease. The patient likely has had a mucous plug or bronchitis with recent general anesthesia and surgery for the finger. She is given prescription for albuterol nebulizer q.6 hourly along with a short tapering dose of prednisone for 5 days only. The patient is advised to come to the emergency room if she were to have recurrence of her symptoms. She was also asked to check for episodes of atrial fibrillation if it were to happen at home. She needs to continue aspirin, losartan, Protonix, multivitamin, vitamin D3, [place] Thyroid as before. I have discussed her findings with the patient and her daughter who is also an ER nurse at bedside. They were given the option of staying here or go home and take nebulizations with prednisone. They have chosen to go home. She is otherwise hemodynamically stable. The patient is advised to be active on returning home. I have discussed all these findings with Dr. Veliz, ER physician, as well. Job ID: [id number]
== END 2019-03-27 11:34 | disposition short-term general hospital (02) ==
LOC: ERS 09:04
DX: J95.4 Chemical pneumonitis due to anesthesia (principal); J90 Pleural effusion, not elsewhere classified; E03.9 Hypothyroidism, unspecified; I49.9 Cardiac arrhythmia, unspecified; I48.91 Unspecified atrial fibrillation; I10 Essential (primary) hypertension; Z79.899 Other long term (current) drug therapy
CPT/HCPCS: 36415; 71045; 71275; 80053; 81003; 82550; 82553; 83690; 83735; 83880; 84443; 84484; 85025; 87040; 87086; 93005; 96374; J2270; Q9967

== ENCOUNTER 2019-08-07 15:21 | Emergency (ER) | payer BC ==
[2019-08-07 16:42] LABS: Bilirubin Negative (Negative); Blood, Urine Negative (Negative); Clarity Clear (Clear); Glucose, Urine (Dipstick) Normal (Negative); Leukocyte Negative Leu/uL (Negative); Nitrite Negative (Negative); Protein, Urine (Dipstick) Negative (Neg-Trace); Urobilinogen Normal mg/dL (Less than 2)
--- NOTE | 2019-08-07 16:53 | RAD ---
RADIOGRAPH CHEST 1 VIEW: DATE: 08/07/2019 HISTORY: 54-year-old female with hypertension and "dependent edema" FINDINGS: There are no airspace densities, pulmonary edema, pneumothorax, or cardiomegaly. The lateral costophr enic angles are sharp. IMPRESSION: No acute cardiopulmonary findings.
[2019-08-07 16:55] LABS: #Basophils 0.1 thou/uL (0.0-0.2); #Eosinphils 0.2 thou/uL (0.0-0.7); #Monocytes 0.5 thou/uL (0.11-0.59); #Neutrophils 5.5 thou/uL (1.40-6.50); %Eosinophils 2.8 % (0.0-10.0); %Lymphocytes 23.8 % (21.0-51.0); %Monocytes 5.8 % (0.0-10.0); %Neutrophils 66.6 % (42.0-75.0); Hemoglobin 10.3 g/dL (12.0-16.0); Mean Corpuscular HGB CONC 31.5 g/dL (32.0-36.0); Mean Corpuscular Hemoglobin 25.5 pg (27.0-31.0); Mean Corpuscular Volume 80.8 fL (78.0-98.0); Mean Platelet Volume 8.1 fL (7.4-10.4); Platelet Count 312 thou/uL (130-400); RBC Distribution Width 13.8 % (11.5-14.5); Red Blood Cell (RBC) Count 4.05 mill/uL (4.20-5.40); White Blood Cell (WBC) Count 8.3 thou/uL (4.8-10.8)
[2019-08-07] MEDS ORDERED: diphenhydrAMINE 25 MG CAP ONE (17:02)
[2019-08-07] MEDS ORDERED: Ketorolac Tromethamine 30 MG/ML VIAL ONE (17:03)
[2019-08-07] MEDS ORDERED: Metoclopramide HCl 10 MG TAB ONE (17:03)
[2019-08-07 17:15] LABS: ALT (SGPT) 14 U/L (8-55); AST (SGOT) 20 U/L (5-34); Albumin 4.2 g/dL (3.5-5.0); Alkaline Phosphatase 95 U/L (40-110); Anion Gap 16 mmol/L (10-20); BUN (Urea Nitrogen) 13 mg/dL (9.8-20.1); Bilirubin, Total 0.3 mg/dL (0.2-1.2); Calc. Creatinine Clearance 0 mL/min (70-130); Calcium 9.1 mg/dL (7.8-10.44); Carbon Dioxide 26 mmol/L (22-29); Chloride 102 mmol/L (98-107); Estimated GFR-MDRD 73; Globulin 3.1 g/dL (2.4-3.5); Glucose 100 mg/dL (70-105); Potassium 4.3 mmol/L (3.5-5.1); Protein, Total 7.3 g/dL (6.0-8.3); Sodium 140 mmol/L (136-145)
--- NOTE | 2019-08-13 13:03 | EKG ---
Test Reason : Blood Pressure : / mmHG Vent. Rate : 072 BPM Atrial Rate : 072 BPM P-R Int : 142 ms QRS Dur : 082 ms QT Int : 404 ms P-R-T Axes : 051 -05 -03 degrees QTc Int : 442 ms Normal sinus rhythm Normal ECG Confirmed by TYSHAWN GRIMALDO DO ([id number]), acquisition editor JAVIER AVENDAÑO ([id number]) on 08/13/2019 1:02:34 PM Referred By: Confirmed By:TYSHAWN GRIMALDO DO
== END 2019-08-07 18:40 | disposition home or self-care (01) ==
LOC: ERS 15:21
DX: I10 Essential (primary) hypertension (principal); R60.9 Edema, unspecified; E03.9 Hypothyroidism, unspecified; I49.9 Cardiac arrhythmia, unspecified; I48.91 Unspecified atrial fibrillation; Z79.899 Other long term (current) drug therapy
CPT/HCPCS: 36415; 71045; 80053; 81003; 83880; 84443; 84484; 85025; 93005; 96372; J1885; Q0163

== ENCOUNTER 2019-12-27 14:24 | Outpatient (CLI) | payer BC ==
--- NOTE | 2019-12-27 16:03 | MMO ---
Bilateral MAMMO Bilat Screen [facility]. CLINICAL HISTORY: Patient is 54 years old and is seen for screening. The patient has the following family history of breast cancer: mother, at age 50 and maternal grandmother, (great). The patient has no personal history of cancer. VIEWS: The views performed were: bilateral craniocaudal with tomosynthesis and bilateral mediolateral oblique with tomosynthesis. FILMS COMPARED: The present examination has been compared to prior imaging studies performed at [facility] on 01/23/2009, 09/16/2011, 12/05/2015 and 06/18/2018. This study has been interpreted with the assistance of computer-aided detection. MAMMOGRAM FINDINGS: There are scattered fibroglandular densities. There are no suspicious masses, suspicious calcifications, or new areas of architectural distortion. IMPRESSION: THERE IS NO MAMMOGRAPHIC EVIDENCE OF MALIGNANCY. A ROUTINE FOLLOW-UP MAMMOGRAM IN 1 YEAR IS RECOMMENDED. THE RESULTS OF THIS EXAM WERE SENT TO THE PATIENT. ACR BI-RADS Category 1 - Negative MAMMOGRAPHY NOTE: 1. A negative mammogram report should not delay a biopsy if a dominant of clinically suspicious mass is present. 2. Approximately 10% to 15% of breast cancers are not detected by mammography. 3. Adenosis and dense breasts may obscure an underlying neoplasm. Reported by: REECE CARNEY MD Electonically Signed: [id number]
== END 2019-12-27 14:25 | disposition home or self-care (01) ==
LOC: BICMAMMO 14:24
PROVIDERS: ATTEND Obstetrics & Gynecology
DX: Z12.31 Encounter for screening mammogram for malignant neoplasm of breast (principal); Z80.3 Family history of malignant neoplasm of breast
CPT/HCPCS: 77063; 77067

== ENCOUNTER 2020-09-10 14:10 | Emergency (ER) | payer OTHER, BC | END 2020-09-10 16:25 | disposition home or self-care (01) | LOC: ERS 14:10 | DX: S20.212A Contusion of left front wall of thorax, initial encounter (principal); S40.012A Contusion of left shoulder, initial encounter; E03.9 Hypothyroidism, unspecified; I10 Essential (primary) hypertension; Z79.899 Other long term (current) drug therapy; V89.2XXA Person injured in unspecified motor-vehicle accident, traffic, initial encounter | CPT/HCPCS: 71260; 72125; 74177; 96374; J1885; Q9967 ==

== ENCOUNTER 2021-07-01 08:24 | Outpatient (CLI) | payer BC | END 2021-07-01 08:25 | disposition home or self-care (01) | LOC: BICMAMMO 08:24 | PROVIDERS: ATTEND Family Medicine | DX: Z12.31 Encounter for screening mammogram for malignant neoplasm of breast (principal); Z80.3 Family history of malignant neoplasm of breast | CPT/HCPCS: 77063; 77067 ==

== ENCOUNTER 2022-10-15 14:10 | Outpatient (CLI) | payer OTHER | END 2022-10-15 14:11 | disposition home or self-care (01) | LOC: BICMAMMO 14:10 | PROVIDERS: ATTEND Family Medicine | DX: N63.11 Unspecified lump in the right breast, upper outer quadrant (principal) | CPT/HCPCS: 77066; G0279 ==

== ENCOUNTER 2023-05-20 11:21 | Outpatient (CLI) | payer BC | END 2023-05-20 11:22 | disposition home or self-care (01) | LOC: BICRAD 11:21 | PROVIDERS: ATTEND Family Medicine | DX: M25.551 Pain in right hip (principal) ==

== ENCOUNTER 2023-12-23 16:08 | Outpatient (CLI) | payer BC | END 2023-12-23 16:09 | disposition home or self-care (01) | LOC: SCSRAD 16:08 | DX: R06.00 Dyspnea, unspecified (principal) | CPT/HCPCS: 71046 ==